=== PATIENT | male | born 1995 | race Caucasian/White ===

== ENCOUNTER 2017-12-04 02:12 | Emergency (ER) | payer MEDICAID ==
[~2017-12-04] VITALS: Ht 175.3 cm; Wt 81.6 kg
[2017-12-04 02:16] VITALS: BP 113/71
--- NOTE | 2017-12-04 02:24 | NUR ---
PT TAKEN TO BED 10
--- NOTE | 2017-12-04 03:18 | NUR ---
PATIENT LEFT WITHOUT BEING SEEN BY DR. Matos. NO FURTHER CARE PROVIDED FOR PATIENT.
--- NOTE | 2017-12-04 03:27 | NUR ---
PT CAME BACK TO ER BED 10 STS " I WAS IN THE BATHROOM, OUTSIDE." ER MD AT BEDSIDE ASHLEY GUZMAN
--- NOTE | 2017-12-04 03:32 | NUR ---
PT BIB SELF C/O BILAT BOTH FOOT PAIN/WHITE RASH S/P FROM RAIN SINCE YESTERDAY. CAP REFILL-IMM, PT DENIES N/V/D; SKIN IS INTACT, PINK/WARM/DRY; AAOX4, PERRL, WITH EVEN AND STEADY GAIT; LUNGS CLEAR BL, BREATHING UNLABORED; HR EVEN AND REGULAR, BL PERIPHERAL PULSES PRESENT; BS ACTIVE X4, NO TENDERNESS TO PALPATION. PT DENIES ANY FEVER, CP, SOB, OR COUGH AT THIS TIME; PT STATES 4/10 PAIN AT THIS TIME; VSS; PATIENT POSITIONED FOR COMFORT; HOB ELEVATED; BEDRAILS UP X2; BED DOWN.
[2017-12-04] MEDS ORDERED: TERBINAFINE 1% 15 GM TUBE TP SCH (03:45)
[2017-12-04] MEDS ORDERED: SULFAMETH/TRIMETH DS 800/160MG 1 TAB PO ONE (03:45)
[2017-12-04] MEDS: IBUPROFEN 600 MG TAB PO ONE ×2 (03:52→03:53)
[2017-12-04 03:54] VITALS: BP 113/71
--- NOTE | 2017-12-04 03:54 | NUR ---
Patient discharged with v/s stable. Written and verbal after care instructions given and explained. Patient alert, oriented and verbalized understanding of instructions. Ambulatory with steady gait. All questions addressed prior to discharge. ID band removed. Patient advised to follow up with PMD. Rx of LAMISIL 250 MG,BACTRIM DS 800 MG, LAMISIL AF 1% TROPICAL SPRAY given. Patient educated on indication of medication including possible reaction and side effects. Opportunity to ask questions provided and answered.
== END 2017-12-04 03:54 | disposition home or self-care (01) ==
LOC: MED 02:12
DX: B35.3 Tinea pedis (principal); L03.116 Cellulitis of left lower limb; L03.115 Cellulitis of right lower limb
CPT/HCPCS: 99283

== ENCOUNTER 2018-02-03 19:12 | Inpatient (IN) | payer MEDICAID ==
[~2018-02-03] VITALS: Ht 167.6 cm; Wt 88.0 kg
--- NOTE | 2018-02-03 19:47 | NUR ---
PT AMBULATED TO ER BED 10
[2018-02-03 19:48] VITALS: BP 122/56
--- NOTE | 2018-02-03 19:57 | NUR ---
22/M CAME IN C/O SUICIDAL IDEATION W/ PLAN "HANGING MY SELF," PT AOX4. HX BIPOLAR. PT TAKES WELLBUTRIN, BUT HAS NOT TAKEN MED SINCE YESTERDAY. Patient in hospital gown. Personal belongings removed from room and stored. Patient desire to harm self others. Potentially harmful items removed from room. Under direct observation. Patient been referred to VARGHESEAIR BASURTO for further evaluation. Will continue to monitor.
--- NOTE | 2018-02-03 20:00 | NUR ---
GERALDINE BASURTO WAS CALLED BY HAND PATCHER JEN
--- NOTE | 2018-02-03 20:14 | NUR ---
SECURITY CALLED FOR PT'S BELONGINGS
[2018-02-03 20:25] LABS: BASOPHILS # (AUTO) 0.1 K/uL (0.00-0.22); BASOPHILS % (AUTO) 1.6 % (0.0-2.0); EOSINOPHILS # (AUTO) 0.2 K/uL (0-0.4); EOSINOPHILS % (AUTO) 2.7 % (0.0-4.0); HEMATOCRIT 34.3 % (36-52); HEMOGLOBIN 11.5 g/dL (12.0-18.0); LYMPHOCYTES # (AUTO) 1.8 K/uL (2.0-11.5); MEAN CORPUSCULAR HEMOGLOBIN 28 pg (27-31); MEAN CORPUSCULAR HGB CONC 34 g/dL (33-37); MEAN CORPUSCULAR VOLUME 85 fL (80-94); MONOCYTES # (AUTO) 0.8 K/uL (0.8-1.0); MONOCYTES % (AUTO) 9.3 % (1.7-9.3); NEUTROPHILS # (AUTO) 5.5 K/uL (1.8-7.7); NEUTROPHILS % (AUTO) 64.4 % (42.2-75.2); PLATELET COUNT (AUTO) 311 K/uL (140-450); RED BLOOD CELL COUNT(AUTO) 4.04 MIL/uL (4.20-6.10); RED CELL DISTRIBUTION WIDTH 12.1 % (11.6-13.7); WHITE BLOOD COUNT (AUTO) 8.4 K/uL (4.8-10.8)
--- NOTE | 2018-02-03 20:27 | NUR ---
Patient being evaluated by physician at bedside.
--- NOTE | 2018-02-03 20:31 | NUR ---
ALL PERSONAL BELONGINGS GIVEN TO SECURITY
[2018-02-03 20:36] LABS: APPEARANCE,URINE CLEAR (CLEAR); BILIRUBIN,URINE NEGATIVE (NEGATIVE); BLOOD, URINE NEGATIVE (NEGATIVE); COLOR,URINE YELLOW (YELLOW); LEUKOCYTE ESTERASE ,URINE NEGATIVE (NEGATIVE); NITRITE, URINE NEGATIVE (NEGATIVE); PH,URINE 6.5 (5.0-9.0); UGLUCOSE NEGATIVE (NEGATIVE)
[2018-02-03 20:42] LABS: ANION GAP 9.7 (8-16); CARBON DIOXIDE 29.1 mmol/L (21-32); CREATININE 1.9 mg/dL (0.7-1.3); POTASSIUM 3.8 mmol/L (3.5-5.1)
[2018-02-03 20:43] LABS: BARBITURATE, URINE NEG. ng/ml (NEG <=200); BENZODIAZEPINE, URINE NEG. ng/mL (NEG <=200); CANNABINOID, URINE POS. ng/mL (NEG <=50); COCAINE, URINE NEG. ng/mL (NEG <=300); OPIATE, URINE NEG. ng/mL (NEG <=2000); PHENCYCLIDINE SCREEN,URINE NEG. ng/mL (NEG <=25)
[2018-02-03 20:50] LABS: ALBUMIN 3.6 g/dL (3.4-5.0); TOTAL BILIRUBIN 0.2 mg/dL (0.0-1.0)
--- NOTE | 2018-02-03 21:00 | NUR ---
Patient appears to be sleeping comfortably in bed. Vital Signs within normal limits. Respirations even and unlabored. 1:1 sitter maintained, safety measures ensured.
--- NOTE | 2018-02-03 21:42 | NUR ---
[facility]ALDINE [employer] OFFICER HAYLEY HERE AT BEDSIDE FOR 8780 EVAL
--- NOTE | 2018-02-03 21:55 | NUR ---
PT PLACED ON 5150 BY GERALDINE BASURTO.
--- NOTE | 2018-02-03 22:10 | NUR ---
Patient appears to be sleeping comfortably in bed. Vital Signs within normal limits. Respirations even and unlabored. 1:1 sitter maintained, safety measures ensured.
--- NOTE | 2018-02-03 22:47 | NUR ---
SPOKE TO ROEL LYLE AT [facility] [phone] , HE STATED HE POSSIBLY MIGHT HAVE A BED OPEN, PAPER WORK FAXED, HE WILL CALL BACK
--- NOTE | 2018-02-03 23:00 | NUR ---
Patient appears to be resting comfortably in bed. Vital Signs within normal limits. Respirations even and unlabored. 1:1 sitter maintained, safety measures ensured.
--- NOTE | 2018-02-03 23:43 | NUR ---
SPOKE TO SARAH LYLE AT [facility] , PACKET FAXED , SHE STATED SHE HAS A BED OPEN.
--- NOTE | 2018-02-04 00:05 | NUR ---
Patient appears to be resting comfortably in bed. Vital Signs within normal limits. Respirations even and unlabored. 1:1 sitter maintained, safety measures ensured.
--- NOTE | 2018-02-04 00:10 | NUR ---
Merari solitario in ED - 02/04/18 at 0133 by STEPHANIE Patient appears to be resting comfortably in bed. Vital Signs within normal limits. Respirations even and unlabored. 1:1 sitting ensured, safety measures ensured.
--- NOTE | 2018-02-04 01:10 | NUR ---
Patient appears to be sleeping comfortably in bed. Vital Signs within normal limits. Respirations even and unlabored. 1:1 sitter maintained, safety measures ensured.
--- NOTE | 2018-02-04 01:25 | NUR ---
CHIARA ISRAEL AND SHERYL LOCKHART BOTH DECLINED , NO VACANCY PER INTAKE SARAH, REFFERED PT TO [facility] , ALSO NO VACANCY PER INTAKE PAUL. NABIL RODRIGUEZ ALSO WAS NOTIFIED FOR PLACEMENT , NO BEDS AT THIS TIME .ER MADE AWARE.
[2018-02-04] MEDS ORDERED: PROCHLORPERAZINE 10 MG/2 ML VIAL IVP PRN (02:05)
[2018-02-04] MEDS ORDERED: MORPHINE SULFATE 2 MG/ML SYR IVP PRN (02:05)
[2018-02-04] MEDS ORDERED: ACETAMINOPHEN 325 MG TAB PO PRN (02:05)
[2018-02-04] MEDS ORDERED: HYDROcodone/APAP 7.5/325 MG 1 TAB PO PRN (02:05)
[2018-02-04] MEDS ORDERED: DOCUSATE SODIUM 100 MG GELCAP PO PRN (02:05)
--- NOTE | 2018-02-04 02:10 | NUR ---
Patient appears to be resting comfortably in bed. Vital Signs within normal limits. Respirations even and unlabored. 1:1 sitter with close monitoring at bedside, safety measures ensured.
[2018-02-04 02:35] LABS: CHOL/HDL RATIO 3.3 (1-4.5); MAGNESIUM 1.9 mg/dL (1.8-2.4); PHOSPHORUS 3.9 mg/dL (2.5-4.9); THYROID STIMULATING HORMONE 0.9 uIU/mL (0.34-3.74)
[2018-02-04 02:40] VITALS: BP 97/51
--- NOTE | 2018-02-04 02:40 | NUR ---
RECEIVED PT FROM ER NURSE WILLIAM-RN. PT ARRIVED VIA GURNEY. AOX4, ON 5150 HOLD WITH ONE ON ONE SUPERVISION FOR SUICIDAL IDEATIONS. ON ROOM AIR. LEFT FA 18G @ 120ML/HR NS. SKIN INTACT. MRSA NARES COLLECTION TAKEN TO LAB. BED IN LOWEST POSITION. WILL CONTINUE TO MONITOR.
[2018-02-04] MEDS ORDERED: LORazepam 1 MG TAB PO PRN (02:45)
[2018-02-04] MEDS ORDERED: LORazepam 1 MG TAB PO SCH (02:45)
--- NOTE | 2018-02-04 02:45 | NUR ---
Patient will be admitted to care of DR ERNST. Admited to TELE. Will go to room 109A. Belongings list completed. Report to JEROD AGUILAR.
[2018-02-04] MEDS: NACL 0.9% 1,000 ML IV SCH ×4 (03:58→21:24)
[2018-02-04 04:00] VITALS: BP 107/60
--- NOTE | 2018-02-04 05:05 | NUR ---
PT SLEEPING AT THIS TIME. BED IN LOWEST POSITION. NO S/S OF RESPIRATORY DISTRESS AT THIS TIME. WILL CONTINUE TO MONITOR.
[2018-02-04 06:22] LABS: BASOPHILS # (AUTO) 0.3 K/uL (0.00-0.22); BASOPHILS % (AUTO) 4.8 % (0.0-2.0); EOSINOPHILS # (AUTO) 0.3 K/uL (0-0.4); EOSINOPHILS % (AUTO) 4.1 % (0.0-4.0); HEMATOCRIT 35.4 % (36-52); LYMPHOCYTES # (AUTO) 1.4 K/uL (2.0-11.5); LYMPHOCYTES % (AUTO) 20.1 % (20.5-51.1); MEAN CORPUSCULAR HEMOGLOBIN 29 pg (27-31); MEAN CORPUSCULAR HGB CONC 34 g/dL (33-37); MEAN CORPUSCULAR VOLUME 86 fL (80-94); MONOCYTES # (AUTO) 0.6 K/uL (0.8-1.0); MONOCYTES % (AUTO) 9.4 % (1.7-9.3); NEUTROPHILS # (AUTO) 4.2 K/uL (1.8-7.7); NEUTROPHILS % (AUTO) 61.6 % (42.2-75.2); PLATELET COUNT (AUTO) 302 K/uL (140-450); RED BLOOD CELL COUNT(AUTO) 4.11 MIL/uL (4.20-6.10); RED CELL DISTRIBUTION WIDTH 12.1 % (11.6-13.7); WHITE BLOOD COUNT (AUTO) 6.8 K/uL (4.8-10.8)
[2018-02-04 06:41] LABS: ANION GAP 10.3 (8-16); CARBON DIOXIDE 28.3 mmol/L (21-32); CREATININE 1.2 mg/dL (0.7-1.3); POTASSIUM 3.6 mmol/L (3.5-5.1)
[2018-02-04 06:46] LABS: PROTHROMBIN TIME 10.5 secs (10.8-13.4)
--- NOTE | 2018-02-04 07:04 | NUR ---
PT SLEEPING AT THIS TIME. NO S/S OF RESPIRATORY DISTRESS OR DISCOMFORT NOTED AT THIS TIME. CALL LIGHT WITHIN REACH. WILL CONTINUE TO MONITOR.
--- NOTE | 2018-02-04 07:13 | NUR ---
ENDORSED PT TO DAY SHIFT NURSE CHAR. PT IN STABLE CONDITION AT THIS TIME.
--- NOTE | 2018-02-04 07:45 | NUR ---
ENDORSEMENT RECEIVED FROM POLYSOMNOGRAPHY TECHNOLOGIST NURSE. PATIENT IS SLEEPING COMFORTABLY, EASILY AROUSABLE BY NAME. RESPIRATION EVEN, UNLABOR ON ROOM AIR. SKIN DRY AND WARM. IV PATENT AND INTACT. DENIED SUICIDAL THOUGHT AT THIS TIME. PLAN OF CARE WAS DISCUSSED WITH PATIENT. BED AT LOW POSITION, BED ALARM ON, 1:1 SITTER ENSURED.
[2018-02-04 08:00] VITALS: BP 101/57
[2018-02-04] MEDS: risperiDONE 1 MG TAB PO SCH (08:38)
[2018-02-04] MEDS: SERTRALINE 50 MG TAB PO SCH (08:38)
--- NOTE | 2018-02-04 10:03 | NUR ---
[facility] INITIAL REVIEW [facility] [phone] PHONE GEE [phone] CALLED [facility], NO PSYCH BEDS AVAILABLE.
--- NOTE | 2018-02-04 11:29 | NUR ---
PATIENT HAS BEEN SCREENED AND CATEGORIZED LOW NUTRITION RISK. PATIENT WILL BE SEEN WITHIN 7 DAYS OF ADMISSION. 02/10/[address]
--- NOTE | 2018-02-04 11:40 | NUR ---
PATIENT IS SLEEPING COMFORTABLY, EASILY AROUSABLE BY NAME. RESPIRATION EVEN, UNLABOR ON ROOM AIR. DENIED OF SUICIDAL THOUGHT. VS WAS TAKEN. 1:1 SITTER ENSURED
--- NOTE | 2018-02-04 11:51 | NUR ---
Called [facility]. Left message for intake regarding bed availability.
[2018-02-04 12:00] VITALS: BP 100/43
--- NOTE | 2018-02-04 14:41 | NUR ---
Called [facility] and spoke with Karoline. No male beds available today.
--- NOTE | 2018-02-04 14:57 | NUR ---
Called [facility] and spoke with Lucy. No beds at this time.
[2018-02-04 16:00] VITALS: BP 102/55
--- NOTE | 2018-02-04 16:10 | NUR ---
PATIENT IS SLEEPING COMFORTABLY, EASILY AROUSABLE BY NAME. RESPIRATIONE EVEN, UNLABOR ON ROOM AIR. DENIED SUICIDAL THOUGHT, HALLUCINATION AT THIS TIME. 1:1 SITTER ENSURE
--- NOTE | 2018-02-04 17:04 | NUR ---
PACKAGING TECH WAS REMOVED. PATIENT IS STABLE AT THIS TIME
--- NOTE | 2018-02-04 18:42 | NUR ---
PATIENT IS SLEEPING COMFORTABLY. RESPIRATION EVEN, UNLABOR ON ROOM AIR. IV PATENT AND INTACT. NO DISTRESS NOTED. 1:1 SITTER ENSURED
--- NOTE | 2018-02-04 19:23 | NUR ---
ENDORSEMENT GIVEN TO THE NEPHROLOGY NURSE NURSE. PATIENT IS STABLE AT THIS TIME
--- NOTE | 2018-02-04 19:24 | NUR ---
RECD. RESTING IN BED SLEEPING BUT EASILY WAKES UP WHEN NAME CALLED. RESPIRATION EVEN AND UNLABORED. IV OF NS AT 120 ML/HR INFUSING, RIGHT FOREARM G18. WHEN ASKED HOW HE IS JUST NODS HEAD AND CONTINUE SLEEPING. 1:1 SITTER NEAR DOOR MONITORING PATIENT CLOSELY. NO APPEARANCE OF PAIN NOTED 0/10.
--- NOTE | 2018-02-04 19:58 | NUR ---
spoke to Solange at [facility] [employer], faxed packet again , possible placement , she will call back when theres vacancy
[2018-02-04 20:00] VITALS: BP 102/60
--- NOTE | 2018-02-04 20:00 | NUR ---
Patient's Plan of Care was discussed and reviewed with TRAFFIC INVESTIGATOR: MORALES LYLES
[2018-02-04] MEDS ORDERED: traZODone 50 MG TAB PO SCH (21:00)
--- NOTE | 2018-02-04 21:21 | NUR ---
DUE PO MEDICATION GIVEN, COOPERATIVE.
--- NOTE | 2018-02-04 22:00 | NUR ---
WARM FOOD AT THE BEDSIDE TABLE. ATE 50% OF DINNER.
--- NOTE | 2018-02-04 23:25 | NUR ---
spoke to Gail at [facility] , no vacancy at this time. Also [facility] and [facility] no beds at this time.
[2018-02-05] VITALS: BP 100/58
[2018-02-05] MEDS: NACL 0.9% 1,000 ML IV SCH ×3 (03:02→12:20)
--- NOTE | 2018-02-05 04:00 | NUR ---
STILL SLEEPING IN BED, WHEN ASKED IF HE NEEDS ANYTHING ALWAYS SAYS NO.
[2018-02-05 06:24] LABS: T4 (THYROXINE) 6.6 ug/dL (4.5-12.0)
--- NOTE | 2018-02-05 07:00 | NUR ---
INQUIRED IF HE VOIDED ALREADY, STATED NO. ENCOURAGED TO DRINK MORE FLUIDS. ATTITUDE PASSIVE. WITH STUBBORNNESS. WILL ENDORSE TO AM NURSE FOR CONTINUITY OF CARE.
--- NOTE | 2018-02-05 07:10 | NUR ---
RECEIVED PATIENT REPORT FROM NIGHTSHIFT NURSE AT BEDSIDE. PATIENT IS ASLEEP AT THIS TIME BUT AROUSABLE. PATIENT IS ALERT AND ORIENTED X4 AT THIS TIME. BREATHING IS WITHIN NORMAL LIMITS. PATIENT DOES NOT COMPLAIN OF ANY PAIN. WILL CONTINUE TO MONITOR PATIENT. PATIENT HAS 1:1 SITTER.
[2018-02-05 08:00] VITALS: BP 105/64
[2018-02-05] MEDS: risperiDONE 1 MG TAB PO SCH (08:46)
[2018-02-05] MEDS: SERTRALINE 50 MG TAB PO SCH (08:46)
--- NOTE | 2018-02-05 08:46 | NUR ---
ABLE TO ADMINISTER MEDICATIONS. PATIENT DENIES ANY SUICIDAL IDEATION OR ANY HALLUCINATIONS AT THIS TIME. PATIENT HAS A FLAT AFFECT WHILE ANSWERING QUESTIONS. WILL CONTINUE TO MONITOR PATIENT.
--- NOTE | 2018-02-05 12:20 | NUR ---
PATIENT RESTING IN BED AT THIS TIME. NO COMPLAINTS OF PAIN. BREATHING IS WITHIN NORMAL LIMITS. PATIENT HAS 1:1 SITTER. WILL CONTINUE TO MONITOR PATIENT.
--- NOTE | 2018-02-05 13:25 | NUR ---
CM NOTE PER FREIGHT ADJUSTER GIO, SEND REVIEWS TO BOTH [facility] AND [facility]. CONCURRENT REVIEW FAXED TO [facility] [phone] PH# [phone] AND TO [facility] [phone] PHONE GEE [phone]
--- NOTE | 2018-02-05 14:04 | NUR ---
PATIENT RESTING IN BED. SWAPPED PATIENTS NS BAG AT THIS TIME. PATIENT SHOWS NO SIGNS OF HALLUCINATIONS OR SUICIDAL IDEATIONS. WILL CONTINUE TO MONITOR PATIENT.
[2018-02-05 16:00] VITALS: BP 110/58
[2018-02-05] MEDS ORDERED: SERT-146 PO (17:46)
[2018-02-05] MEDS ORDERED: RIS1 PO (17:46)
[2018-02-05] MEDS ORDERED: TRAZ-286 PO (17:46)
--- NOTE | 2018-02-05 17:55 | NUR ---
PATIENT RESTING IN BED AT THIS TIME. NO COMPLAINTS OF PAIN. RESPIRATIONS ARE WITHIN NORMAL LIMITS. WILL CONTINUE TO MONITOR PATIENT.
--- NOTE | 2018-02-05 18:24 | NUR ---
[facility] CALLED AND GAVE BED RM 18, SPOKE TO GEORGETTE. ACCEPTING MD IS DR. ROSE. DR. BECERRA NOTIFIED.
--- NOTE | 2018-02-05 18:25 | NUR ---
CALLED REPORT TO JEROD SIERRA AND GAVE REPORT. CALLED MOTHER AND VOICEMAIL IS FULL.
--- NOTE | 2018-02-05 19:30 | NUR ---
PATIENT SIGNED AND LEFT WITH DISCHARGE INSTRUCTIONS. REMOVED PATIENT'S IV LINE WITH CATHETER STILL INTACT. PATIENT IS IN STABLE CONDITION. PATIENT LEFT WITH TRANSPORT IN STABLE CONDITION WITH ALL BELONGINGS.
== END 2018-02-05 19:30 | disposition designated cancer center or children's hospital (05) | DRG 812 ==
LOC: MED 19:12 → MTU 02-04 02:08
PROVIDERS: ADMIT Family Medicine Sports Medicine; ATTEND Family Medicine Sports Medicine
DX: T40.7X1A Poisoning by cannabis (derivatives), accidental (unintentional), initial encounter (principal); N17.0 Acute kidney failure with tubular necrosis; G92 Toxic encephalopathy; F31.4 Bipolar disorder, current episode depressed, severe, without psychotic features; R45.851 Suicidal ideations; F12.90 Cannabis use, unspecified, uncomplicated; D64.9 Anemia, unspecified; F15.90 Other stimulant use, unspecified, uncomplicated; Z91.14 Patient's other noncompliance with medication regimen; Y92.89 Other specified places as the place of occurrence of the external cause
CPT/HCPCS: 36415; 71045; 80048; 80053; 80305; 81003; 82140; 83735; 84100; 84436; 84443; 84479; 85025; 85610; 85730; 87081; 93005; 99285; J7030

== ENCOUNTER 2020-02-12 14:43 | Inpatient (IN) | payer MEDICAID ==
[~2020-02-12] VITALS: Ht 177.8 cm; Wt 90.7 kg
[~2020-02-12 14:43] MED LIST: RIS1 PO; SERT-146 PO; TRAZ-466 PO
[2020-02-12 14:51] VITALS: BP 113/66
--- NOTE | 2020-02-12 15:00 | NUR ---
PT AMBULATED TO ER BED 05
--- NOTE | 2020-02-12 15:05 | NUR ---
PHYSICIAN EVAULATING PATIENT AT THIS TIME
[2020-02-12 15:17] LABS: BASOPHILS # (AUTO) 0.1 K/uL (0.00-0.22); BASOPHILS % (AUTO) 1.3 % (0.0-2.0); EOSINOPHILS # (AUTO) 0.3 K/uL (0-0.4); EOSINOPHILS % (AUTO) 3.7 % (0.0-4.0); HEMATOCRIT 39.4 % (36-52); HEMOGLOBIN 13.2 g/dL (12.0-18.0); LYMPHOCYTES % (AUTO) 23.8 % (20.5-51.1); MEAN CORPUSCULAR HEMOGLOBIN 30 pg (27-31); MEAN CORPUSCULAR HGB CONC 34 g/dL (33-37); MEAN CORPUSCULAR VOLUME 89.3 fL (80-94); MONOCYTES # (AUTO) 0.5 K/uL (0.8-1.0); MONOCYTES % (AUTO) 6.3 % (1.7-9.3); NEUTROPHILS # (AUTO) 5.4 K/uL (1.8-7.7); NEUTROPHILS % (AUTO) 64.9 % (42.2-75.2); PLATELET COUNT (AUTO) 303 K/uL (140-450); RED BLOOD CELL COUNT(AUTO) 4.41 MIL/uL (4.20-6.10); RED CELL DISTRIBUTION WIDTH 13.6 % (11.6-13.7); WHITE BLOOD COUNT (AUTO) 8.3 K/uL (4.8-10.8)
--- NOTE | 2020-02-12 15:29 | NUR ---
PT STATES SI, STATES HE WANTS TO HARM HIMSELF AND OTHERS X 3 DAYS, NO PLAN. NO SUICIDE ATTEMPT. PT AWAKE , ALERT, AFIBRILE , AMBULATORY WITH STEADY GAIT . SCE , CBS , PINK PALPEBRAL CONJUNCTIVAE , ANICTERIC SCLERAE . MEDHX: DENIES
[2020-02-12 15:38] LABS: ALBUMIN 3.5 g/dL (3.4-5.0); ANION GAP 9.6 (8-16); ASPARTATE AMINOTRANSFERASE 18 U/L (15-37); CHLORIDE 105 mmol/L (98-107); GFR ARICAN-AMERICAN 116 mL/min (>90); GLUCOSE 128 mg/dL (74-106); POTASSIUM 3.6 mmol/L (3.5-5.1); SODIUM SERUM 141 mmol/L (136-145); TOTAL BILIRUBIN 0.2 mg/dL (0.0-1.0); UREA NITROGEN, BLOOD 13 mg/dL (7-18)
[2020-02-12] MEDS ORDERED: NACL 0.9% 1,000 ML IV ONE ×2 (15:45→16:55)
[2020-02-12 15:50] LABS: ACETAMINOPHEN < 0.5 ug/ml (10-30); SALICYLATE < 2.8 mg/dL (2.8-20.0)
--- NOTE | 2020-02-12 16:17 | NUR ---
PT AWAKE , ALERT, COMFORTABLE IN BED SIDE RAILS UP AND LOCK.
--- NOTE | 2020-02-12 17:03 | NUR ---
PT AWAKE ,ALERT, AFIBRILE ,SITTING IN BED ,SIDE RAILS UP AND LOCK.
[2020-02-12 17:23] LABS: BARBITURATE, URINE NEGATIVE ng/ml (NEG <=200); BENZODIAZEPINE, URINE NEGATIVE ng/mL (NEG <=200); CANNABINOID, URINE POSITIVE ng/mL (NEG <=50); COCAINE, URINE NEGATIVE ng/mL (NEG <=300); OPIATE, URINE NEGATIVE ng/mL (NEG <=2000); PHENCYCLIDINE SCREEN,URINE NEGATIVE ng/mL (NEG <=25)
--- NOTE | 2020-02-12 17:54 | NUR ---
Dr. Anderson is evaluating the patient via telepsychiatry.
--- NOTE | 2020-02-12 17:55 | NUR ---
PT ON TELEPSYCHE EVALUATION.
--- NOTE | 2020-02-12 19:14 | NUR ---
GIVE REPORT TO JEROD GARCÍA.
[2020-02-12] MEDS ORDERED: ALUMINUM HYD/MAG/SIMETHICONE 30 ML UDC PO ONE (20:10)
--- NOTE | 2020-02-12 20:45 | NUR ---
PT ASLEEP IN BED. NO S/S OF DISTRESS NOTED
[2020-02-12] MEDS ORDERED: ONDANSETRON 4 MG/2 ML VIAL IVP PRN (22:05)
[2020-02-12] MEDS ORDERED: ACETAMINOPHEN 325 MG TAB PO PRN (22:05)
[2020-02-12 22:42] LABS: FREE T4 (FREE THYROXINE) 1.01 ng/dL (0.76-1.46); MAGNESIUM 2.2 mg/dL (1.8-2.4); PHOSPHORUS 2.9 mg/dL (2.5-4.9); THYROID STIMULATING HORMONE 1.29 uIU/mL (0.34-3.74)
[2020-02-12 22:45] VITALS: BP 109/43
[2020-02-12] MEDS: NACL 0.9% 1,000 ML IV SCH (22:45)
--- NOTE | 2020-02-12 22:45 | NUR ---
RECEIVED BEDSIDE REPORT FROM ER NURSE RICKY. PATIENT RECEIVED ON MST FLOOR VIA GURNEY. PT IN STABLE CONDITION. NO SIGNS OF DISTRESS NOTED. ON 5150 HOLD DUE TO SUICIDAL IDEATION. ONE ON ONE SITTER IMPLEMENTED. INITIAL SKIN ASSESSMENT DONE, SKIN INTACT. DR FU CAME AND SAW PATIENT AT BEDSIDE. IV SITE LEFT AC ASSESSED AND INTACT. IV PATENT. WILL CONTINUE TO MONITOR
--- NOTE | 2020-02-12 22:50 | NUR ---
Patient will be admitted to care of DR STEEL. Admited to [facility] . Will go to room 109B. Belongings list completed. Report to JEROD GUZMAN.
[2020-02-13] MEDS ORDERED: DICYCLOMINE 10 MG CAP PO SCH (00:25)
[2020-02-13] MEDS ORDERED: LIDOCAINE VISCOUS 2% 20 ML UDC PO SCH (00:25)
[2020-02-13] MEDS ORDERED: ALUMINUM HYD/MAG/SIMETHICONE 30 ML UDC PO SCH (00:25)
--- NOTE | 2020-02-13 01:36 | NUR ---
PT GOT UP TO USE THE RESTROOM AND ACCIDENTLY PULLED OUT HIS IV. CATHETER TIP INTACT. PT AGREED TO NEW IV INSERTION. 22 GAUGE IV WAS INSERTED ON THE RIGHT FOREARM. PT TOLERATED WELL. NO SIGNS OF DISTRESS NOTED. GI COCKTAIL ALSO ADMINISTERED FOR THE PATIENT. WILL CONTINUE TO MONITOR
--- NOTE | 2020-02-13 03:48 | NUR ---
ROUNDING. PT ASLEEP. EASILY AROUSABLE. NO SIGNS OF DISTRESS NOTED. SAFETY MEASURES IN PLACE. ONE ON ONE SITTER IN PLACE. WILL CONTINUE TO MONITOR
[2020-02-13 04:49] LABS: BASOPHILS # (AUTO) 0.1 K/uL (0.00-0.22); BASOPHILS % (AUTO) 1.6 % (0.0-2.0); EOSINOPHILS # (AUTO) 0.3 K/uL (0-0.4); EOSINOPHILS % (AUTO) 3.6 % (0.0-4.0); HEMATOCRIT 39.5 % (36-52); LYMPHOCYTES # (AUTO) 3.1 K/uL (2.0-11.5); LYMPHOCYTES % (AUTO) 35.2 % (20.5-51.1); MEAN CORPUSCULAR HEMOGLOBIN 30 pg (27-31); MEAN CORPUSCULAR HGB CONC 33 g/dL (33-37); MEAN CORPUSCULAR VOLUME 89.8 fL (80-94); MONOCYTES # (AUTO) 0.6 K/uL (0.8-1.0); MONOCYTES % (AUTO) 7.3 % (1.7-9.3); NEUTROPHILS # (AUTO) 4.6 K/uL (1.8-7.7); NEUTROPHILS % (AUTO) 52.3 % (42.2-75.2); PLATELET COUNT (AUTO) 255 K/uL (140-450); RED BLOOD CELL COUNT(AUTO) 4.39 MIL/uL (4.20-6.10); RED CELL DISTRIBUTION WIDTH 13.7 % (11.6-13.7); WHITE BLOOD COUNT (AUTO) 8.7 K/uL (4.8-10.8)
--- NOTE | 2020-02-13 05:00 | NUR ---
PT IS ASLEEP. NO S/S OF NAY DISCOMFORT NOTED.
[2020-02-13 05:13] LABS: CARBON DIOXIDE 30.1 mmol/L (21-32); CREATININE 0.9 mg/dL (0.6-1.3); POTASSIUM 4.1 mmol/L (3.5-5.1)
[2020-02-13 05:20] LABS: CHOL/HDL RATIO 3.8 (1-4.5); MAGNESIUM 2.2 mg/dL (1.8-2.4); PHOSPHORUS 2.6 mg/dL (2.5-4.9)
--- NOTE | 2020-02-13 07:15 | NUR ---
ENDORSE PT IN STABLE CONDITION TO AM NURSE.
--- NOTE | 2020-02-13 07:16 | NUR ---
RECEIVED REPORT FROM TAFFY PULLER NURSEMEGAN. PT IS IN STABLE CONDITION. RESPIRATIONS EVEN AND UNLABORED, BREATHING TO ROOM AIR. IV INTACT AND PATENT. SAFETY MEASURES IN PLACE. BED IN LOW POSITION, SITTER 1:1. WILL CONTINUE TO MONITOR.
[2020-02-13 08:00] VITALS: BP 103/50
--- NOTE | 2020-02-13 08:03 | NUR ---
Received report from hydroponics worker. Packets were referred to the following facilities: [facility] There are no beds at this time.
[2020-02-13] MEDS: SERTRALINE 50 MG TAB PO SCH (09:24)
[2020-02-13] MEDS: DOCUSATE SODIUM 100 MG GELCAP PO SCH ×2 (09:24→20:54)
[2020-02-13] MEDS: FAMOTIDINE 20 MG TAB PO SCH ×2 (09:25→20:54)
--- NOTE | 2020-02-13 09:28 | NUR ---
GAVE ORDERED DUE MEDICATION. PT TOLERATED WELL. SITTER 1:1. WILL CONTINUE TO MONITOR.
--- NOTE | 2020-02-13 10:22 | NUR ---
PT IN RESTROOM, WAS INFORMED OF UA SAMPLE. SAMPLE NOT GIVEN AT THIS TIME.
[2020-02-13 10:55] LABS: APPEARANCE,URINE CLEAR (CLEAR); BILIRUBIN,URINE NEGATIVE (NEGATIVE); BLOOD, URINE NEGATIVE (NEGATIVE); COLOR,URINE YELLOW (YELLOW); LEUKOCYTE ESTERASE ,URINE NEGATIVE (NEGATIVE); NITRITE, URINE NEGATIVE (NEGATIVE); UGLUCOSE NEGATIVE (NEGATIVE)
--- NOTE | 2020-02-13 12:45 | NUR ---
PT EATING LUNCH AT THIS TIME IN STABLE CONDITION. SITTER 1:1 AT BEDSIDE. WILL CONTINUE TO MONITOR.
[2020-02-13] MEDS: ALUMINUM HYD/MAG/SIMETHICONE 30 ML UDC PO PRN (15:32)
--- NOTE | 2020-02-13 15:34 | NUR ---
GAVE PT PRN MAALOX, PER PATIENT REQUEST. PT INSTABLE CONDITION. SITTER 1:1.
[2020-02-13 16:00] VITALS: BP 123/76
--- NOTE | 2020-02-13 17:30 | NUR ---
PT LYING IN BED IN STABLE CONDITION. SITTER 1:1 AT BEDSIDE. PT IN STABLE CONDITION.
--- NOTE | 2020-02-13 19:29 | NUR ---
GAVE REPORT TO SENIOR WEB APPLICATIONS DEVELOPER NURSE, ANDREZ FOR CONTINUITY OF CARE. PT IN STABLE CONDITION.
--- NOTE | 2020-02-13 19:30 | NUR ---
REPORT RECEIVED FROM JOSE NEWSOME DAY SHIFT NURSE AT BEDSIDE FOR CONTINUITY OF CARE, PT IN STABLE CONDITION.RESPIRATIONS EVEN AND UNLABORED AND PT HAS NO S/S OF PAIN OR DISTRESS NOTED. ALL FALLS PRECAUTIONS IN PLACE. Addendum: 02/13/20 at 1951 by Barbara Pizarro RN ALL UNIVERSAL FALLS PRECAUTIONS IN PLACE.
[2020-02-13] MEDS: traZODone 50 MG TAB PO SCH (20:54)
[2020-02-13] MEDS: PANTOPRAZOLE 40 MG TABEC PO SCH (20:54)
--- NOTE | 2020-02-13 21:00 | NUR ---
PT IN BED 1:1 SITTER AT BEDSIDE. PT SEEMED WITH DRAWN WITH FLAT AFFECT. ORDERED MEDICATION WAS EXPLAINED INCLUDING SIDE EFFECTS, ABD PT DID AGREE TO TAKE HIS ORDERED MEDICATION ( COLACE, PEPCID, PROTONIX AND TRAZODONE) AT THIS TIME. PT DID HOWEVER, PULL OUT HIS IV SITE WITH CANULA INTACT. IT WAS EXPLAINED TO PT THAT HE NEEDS TO HAVE AN IV SITE ON THE FLOOR. PT DECLINES TO HAVE ANOTHER ONE. MD PALMA RESIDENT MADE AWARE. PT HAS NO C/O VOICED AT THIS TIME.
--- NOTE | 2020-02-13 22:00 | NUR ---
1:1 SITTER REMAINS AT BEDSIDE. PT SLEEPING AND DISPLAYING NO ACTIONS TO TRY AND HARM HIMSELF. PT HAD CONSULT WITH PSYCH MD DR NEFF AT BEDSIDE.
[2020-02-13] MEDS: NACL 0.9% 1,000 ML IV SCH (22:03)
[2020-02-14] VITALS: BP 108/62
--- NOTE | 2020-02-14 01:00 | NUR ---
1:1 SITTER AT BEDSIDE, PT ASLEEP IN BED NO S/S OF PAIN OR DISTRESS NOTED.
--- NOTE | 2020-02-14 04:30 | NUR ---
PT ASLEEP NO S/S OF PAIN OR DISTRESS NOTED, 1:1 SITTER AT BEDSIDE.
--- NOTE | 2020-02-14 07:15 | NUR ---
RECEIVED PT. FROM ACADEMIC TUTOR NURSEANDREZ. PT. IS ASLEEP AND IN BED. FULL CODE AND NO KNOWN ALLERGIES. NO IV SITE NOTED. STANDARD ISOLATION AND AMBULATORY. CALL LIGHT WITHIN REACH. REVIEWED PLAN OF CARE. WILL CONTINUE TO MONITOR.
[2020-02-14 08:00] VITALS: BP 106/55
[2020-02-14] MEDS: PANTOPRAZOLE 40 MG TABEC PO SCH ×2 (08:42→21:53)
[2020-02-14] MEDS: FAMOTIDINE 20 MG TAB PO SCH (08:43)
[2020-02-14] MEDS: DOCUSATE SODIUM 100 MG GELCAP PO SCH ×2 (08:43→21:52)
[2020-02-14] MEDS: SERTRALINE 50 MG TAB PO SCH (08:44)
[2020-02-14] MEDS: ALUMINUM HYD/MAG/SIMETHICONE 30 ML UDC PO PRN ×2 (08:48→18:36)
--- NOTE | 2020-02-14 08:52 | NUR ---
MORNING MEDICATIONS GIVEN. NO SIGNS OF DISTRESS NOTED. WILL CONTINUE TO MONITOR.
--- NOTE | 2020-02-14 08:57 | NUR ---
PATIENT HAS BEEN SCREENED AND CATEGORIZED HIGH NUTRITION RISK. PATIENT WILL BE SEEN WITHIN 1-2 DAYS OF ADMISSION. 02/13/20 02/14/[address]
[2020-02-14] MEDS ORDERED: risperiDONE 1 MG TAB PO SCH (09:00)
--- NOTE | 2020-02-14 12:26 | NUR ---
02/14/20 RD INITIAL ASSESSMENT COMPLETED PLEASE REFER TO NUTRITION ASSESSMENT UNDER CARE ACTIVITY FOR ESTIMATED NUTRITIONAL NEEDS. 1. CONTINUE REGULAR DIET TOLERATED 2. RD TO FOLLOW-UP 5-7 DAYS, LOW RISK LA [address]
--- NOTE | 2020-02-14 13:00 | NUR ---
PT. REFUSES TO EAT LUNCH AND WANTS TO CONTINUE SLEEPING. OFFERED ALTERNATIVE FOOD BUT STILL REFUSES. WILL CONTINUE TO MONITOR.
[2020-02-14 16:00] VITALS: BP 114/59
--- NOTE | 2020-02-14 18:25 | NUR ---
PT IS ASLEEP AND IN BED. PT. REFUSES TO EAT DUE TO GASTRIC PAIN OF 8/10. PT. IS GRIMACING AND GUARDING SITE OF PAIN. WILL ADMINISTER PRN MEDICATION AND CONTINUE TO MONITOR.
--- NOTE | 2020-02-14 18:37 | NUR ---
[place] PO GIVEN FOR GASTRIC PAIN LEVEL OF 8/10. NO SIGNS OF DISTRESS. PT. VERBALIZES THAT HE WILL EAT AFTER THE PAIN GOES AWAY. WILL CONTINUE TO MONITOR AND ENDORSE TO PUBLIC AFFAIRS SPECIALIST NURSE.
--- NOTE | 2020-02-14 19:10 | NUR ---
ENDORSED PT. TO SUPERVISOR PRINTING AND STAMPING NURSE, ANDREZ, FOR CONTINUITY OF CARE.
--- NOTE | 2020-02-14 19:10 | NUR ---
RECEIVED REPORT AT BEDSIDE FROM HAM NEWSOME DAYSHIFT NURSE FOR CONTINUITY OF CARE. PT IN BED SLEEPING, RESPIRATIONS ARE EVEN AND UNLABORED NO S/S OF PAIN OR DISTRESS NOTED. PT HAS NO IV SITES AND NO IV FLUIDS RUNNING AT THIS TIME. 1:1 SITTER AT BEDSIDE FOR SUICIDAL PRECAUTIONS.
--- NOTE | 2020-02-14 20:20 | NUR ---
PT IN BED 1:1 PT IN BED SLEEPING BUT AROUSABLE TO NAME. PT HAS FULL DINNER AT BEDSIDE. PT ENCOURAGE TO EAT DINNER AND STAFF EVEN OFFERED TO HEAT UP DINNER FOR HIM. PT REPLIED THAT HE WOULD EAT IT LATER IN A LITTLE WHILE AND THAT HE WANTS TO REST FIRST. PT DENIES ANY PAIN AT THIS TIME. DUE MEDICATIONS OF COLACE, PROTONIX AND TRAZODONE WAS EXPLAINED AT BEDSIDE INCLUDING BENEFITS AND SIDE EFFECTS, PT VERBALIZED UNDERSTANDING AND AGREED TO TAKE MEDICATION. PT WAS COOPERATIVE BUT GUARDED. AFTER TAKING MEDS HE WENT BACK TO SLEEP.
--- NOTE | 2020-02-14 20:45 | NUR ---
MD WEISSRESS HERE FOR PSYCH CONSULT AT BEDSIDE.
[2020-02-14] MEDS: traZODone 50 MG TAB PO SCH (21:53)
[2020-02-14] MEDS: NACL 0.9% 1,000 ML IV SCH (22:03)
[2020-02-15] VITALS: BP 112/65
--- NOTE | 2020-02-15 | NUR ---
PT IN BED ASLEEP, BUT AROUSABLE TO NAME, DINNER STILL UNEATEN AT BEDSIDE, PT DENIES ANY PAIN. SAYS HE WILL EAT THE DINNER LATER. V/S FOLLOWS: T 97.9 P 59 R 14 B/P 112/65 02 99% ON ROOM AIR. 1:1 SITTER AT BEDSIDE.
--- NOTE | 2020-02-15 02:24 | NUR ---
At this time there are still no vacancy at any of the following facilities, [facility] will continue to look for placement.
--- NOTE | 2020-02-15 07:20 | NUR ---
RECEIVED REPORT FROM NOTCHER NURSE, FOR CONTINUITY OF CARE. PT IS RESTING IN BED, AROUSABLE TO VOICE. RESPIRATIONS ARE EVEN AND UNLABORED, BREATHING TO RA. A&OX3. SKIN INTACT. NO IV, DR IS AWARE. SAFETY MEASURES IN PLACE. BED IN LOW POSITION. SITTER 1:1. NO DISTRESS NOTED. WILL CONTINUE TO MONITOR.
[2020-02-15 08:00] VITALS: BP 119/71
[2020-02-15] MEDS: ALUMINUM HYD/MAG/SIMETHICONE 30 ML UDC PO PRN (08:59)
[2020-02-15] MEDS: DOCUSATE SODIUM 100 MG GELCAP PO SCH (09:00)
[2020-02-15] MEDS: SERTRALINE 50 MG TAB PO SCH (09:00)
[2020-02-15] MEDS: PANTOPRAZOLE 40 MG TABEC PO SCH (09:01)
--- NOTE | 2020-02-15 09:04 | NUR ---
PT REQUESTED MAALOX AND COMPLAINED OF STOMACH PAIN, AND IT WAS GIVEN, ORDERED. PT'S SCHEDULED MEDICATIONS WERE ALSO GIVEN, ORDERED. PT TOLERATED PO MEDS WELL. PT IS SITTING UP IN BED, ON PHONE. NO ACUTE DISTRESS NOTED. SAFETY MEASURES IN PLACE. SITTER 1:1. WILL CONTINUE TO MONITOR.
--- NOTE | 2020-02-15 10:05 | NUR ---
DISCHARGE PLANNING: THIS IS A 24 Y/O FEMALE PATIENT FROM HOME, WHO CAME IN DUE TO ABDOMINAL PAIN AND SUICIDAL/HOMICIDAL IDEATIONS. PAST MEDICAL HISTORY OF BIPOLAR DISORDER, RHEUMATOID ARTHRITIS AND MIGRAINES. INITIAL DIAGNOSIS OF SUICIDAL IDEATION. CURRENT LABS INCLUDE WBC 8.7, H/H 13.0/39.5, NA/K 143/4.1, BUN/CREA 8/0.9. UDS POSITIVE FOR CANNABINOIDS. MRSA NARES STILL PENDING. PSYCHE CONSULT IN PLACE. DC PLAN TO IN PATIENT PSYCHE FACILITY.
--- NOTE | 2020-02-15 10:59 | NUR ---
Tax Professional Note: Patient is a 24-year-old male admitted for bipolar disorder, rheumatoid arthritis, and migraines. Patient was admitted from home. SW met with patient at bedside to complete assessment. Patient refused to complete assessment. SW will follow up as needed.
--- NOTE | 2020-02-15 11:00 | NUR ---
PT IS AWAKE AND RESTING IN BED. NO ACUTE DISTRESS NOTED. SAFETY MEASURES, BED IN LOW POSITION. IN PLACE SITTER 1:1. WILL CONTINUE TO MONITOR.
--- NOTE | 2020-02-15 11:53 | NUR ---
PT IS UPSET AND AGITATED. DR. CHUNG WAS NOTIFIED AND ORDERED ATIVAN PO, ONCE. PO MED WAS GIVEN, PT TOLERATED WELL. SAFETY MEASURES IN PLACE. SITTER 1:1 AT BEDSIDE. WILL CONTINUE TO MONITOR.
[2020-02-15] MEDS ORDERED: LORazepam 1 MG TAB PO SCH (12:00)
--- NOTE | 2020-02-15 13:00 | NUR ---
PT IS SITTING UP IN BED. NO ACUTE DISTRESS NOTED. SAFETY MEASURES IN PLACE. SITTER 1:1 AT BEDSIDE. WILL CONTINUE TO MONITOR.
--- NOTE | 2020-02-15 15:13 | NUR ---
A MAGAZINE WAS PROVIDED TO PT, REQUESTED. PT IS LYING IN BED READING. NO DISTRESS NOTED. SAFETY MEASURES IN PLACE. 1:1 SITTER AT BEDSIDE. WILL CONTINUE TO MO Addendum: 02/15/20 at 1517 by Alexandria Ramos RN WILL CONTINUE TO MONITOR.
--- NOTE | 2020-02-15 15:45 | NUR ---
DR OWENS IS AT BEDSIDE TALKING WITH PATIENT. NO SIGNS OF DISTRESS NOTED. SAFETY MEASURES IN PLACE. SITTER 1:1 AT BEDSIDE.
[2020-02-15 17:02] VITALS: BP 125/78
--- NOTE | 2020-02-15 17:05 | NUR ---
INFORMED PT THAT HE WILL BE DC FROM THE HOSPITAL AND ASKED IF ANYONE IS ABLE TO PICK HIM UP. PER PT, HIS FRIEND WILL PICK HIM UP. PT REQUESTED TO TAKE A SHOWER, [facility] IS PROVIDING SUPPLIES FOR SHOWER. NO SIGNS OF DISTRESS NOTED. SAFETY MEASURES IN PLACE.
[2020-02-15] MEDS ORDERED: PANT40EC PO (17:29)
--- NOTE | 2020-02-15 17:49 | NUR ---
PAGED SECURITY TO RETURN PT'S BELONGING. PT STATED THAT HIS FRIEND IS UNABLE TO PICK HIM UP AND NEED A BUS PASS. NOTIFIED WINDOWS TECHNICAL SPECIALIST.
--- NOTE | 2020-02-15 17:54 | NUR ---
PT WAS REQUESTING A BUS PAS. BUS PASS OBTAINED FROM ARTIFICIAL CHERRY MAKER, TYREL, AND GIVEN TO PATIENT.
--- NOTE | 2020-02-15 18:00 | NUR ---
DISCHARGE INSTRUCTION PROVIDED TO PT AT BEDSIDE. PT IS AAOX4 AND ABLE TO COMMUNICATE APPROPRIATELY. PT DENIED ANY SUICIDAL THOUGHT AT THIS TIME. EDUCATED PT ON DISEASE MANAGEMENT, MEDICATION REGIMENS, SIDE EFFECTS, DIET AND SEEK HELP WHEN FEELING SUICIDAL IDEATION. ANSWERED ALL PT'S QUESTIONS. PT VERBALIZED UNDERSTANDING. REMOVED ALL ARM BANDS. DISCHARGE PACKET PROVIDED TO PT AND PT VERBALIZED HE WILL FOLLOW UP WITH PCP AFTER DISCHARGE. PT REFUSED FLU VACCINE AND EDUCATION PROVIDED. PT TOOK ALL HIS BELONGINGS. PT IS GOING TO DISCHARGE HOME. ARTIFICIAL FLOWER MAKER ESCORTED PT TO THE FRONT LOBBY. PT IS IN STABLE CONDITION.
[2020-02-15] MEDS ORDERED: risperiDONE 1 MG TAB PO SCH (21:00)
== END 2020-02-15 18:00 | disposition home or self-care (01) | DRG 243 ==
LOC: MED 14:43 → MTU 22:03
PROVIDERS: ADMIT General Practice; ATTEND General Practice
DX: K21.9 Gastro-esophageal reflux disease without esophagitis (principal); R45.851 Suicidal ideations; E83.51 Hypocalcemia; E66.3 Overweight; F31.9 Bipolar disorder, unspecified; R73.9 Hyperglycemia, unspecified; F12.90 Cannabis use, unspecified, uncomplicated; M06.9 Rheumatoid arthritis, unspecified; G43.909 Migraine, unspecified, not intractable, without status migrainosus; Z68.28 Body mass index [BMI] 28.0-28.9, adult
CPT/HCPCS: 36415; 71045; 74018; 80048; 80053; 80305; 81003; 82150; 83036; 83690; 83735; 83880; 84100; 84439; 84443; 84484; 85025; 85610; 85730; 87081; 93005; 96360; 96361; 99285; G0480; G0482; J7030; Q0092

== ENCOUNTER 2020-02-21 15:35 | Emergency (ER) | payer MEDICAID ==
[~2020-02-21] VITALS: Ht 172.7 cm; Wt 90.7 kg
[~2020-02-21 15:35] MED LIST changes: +PANT40EC PO
[2020-02-21 15:36] VITALS: BP 107/64
[2020-02-21 16:30] LABS: BARBITURATE, URINE NEGATIVE ng/ml (NEG <=200); BENZODIAZEPINE, URINE NEGATIVE ng/mL (NEG <=200); CANNABINOID, URINE POSITIVE ng/mL (NEG <=50); COCAINE, URINE NEGATIVE ng/mL (NEG <=300); OPIATE, URINE NEGATIVE ng/mL (NEG <=2000); PHENCYCLIDINE SCREEN,URINE NEGATIVE ng/mL (NEG <=25)
== END 2020-02-21 16:17 | disposition left against medical advice (07) ==
LOC: MED 15:35
DX: F12.90 Cannabis use, unspecified, uncomplicated (principal); F10.20 Alcohol dependence, uncomplicated; J45.909 Unspecified asthma, uncomplicated; K21.9 Gastro-esophageal reflux disease without esophagitis; Z79.899 Other long term (current) drug therapy
CPT/HCPCS: 80305; 99283

== ENCOUNTER 2020-04-29 17:44 | Inpatient (IN) | payer MEDICAID ==
[~2020-04-29] VITALS: Ht 172.7 cm; Wt 85.7 kg
[2020-04-29 17:48] VITALS: BP 132/78
--- NOTE | 2020-04-29 18:18 | NUR ---
24 YO MALE STATES HE IS HAVING THOUGHTS ABOUT HARMING HIMSELF, DENIES ANY HI. STATES HE SMOKED MARIJUANA EARLIER TODAY BUT DENIES ANY OTHER DRUG/ALCOHOL USE. ALSO C/P PRESSURE ON CHEST. PT DENIES ANY PLAN TO HARM HIMSELF. PMH: SCHIZO-EFFECTIVE DISORDER, BIPOLAR, DEPRESSION NKA
[2020-04-29] MEDS ORDERED: ALUMINUM HYD/MAG/SIMETHICONE 30 ML UDC PO ONE (18:30)
--- NOTE | 2020-04-29 18:50 | NUR ---
Lab at bedside
[2020-04-29 19:03] LABS: BASOPHILS # (AUTO) 0.1 K/uL (0.00-0.22); BASOPHILS % (AUTO) 0.8 % (0.0-2.0); EOSINOPHILS # (AUTO) 0.2 K/uL (0-0.4); EOSINOPHILS % (AUTO) 2.3 % (0.0-4.0); HEMATOCRIT 36.8 % (36-52); HEMOGLOBIN 12.5 g/dL (12.0-18.0); LYMPHOCYTES # (AUTO) 1.8 K/uL (2.0-11.5); LYMPHOCYTES % (AUTO) 21.7 % (20.5-51.1); MEAN CORPUSCULAR HEMOGLOBIN 30 pg (27-31); MEAN CORPUSCULAR HGB CONC 34 g/dL (33-37); MEAN CORPUSCULAR VOLUME 88.6 fL (80-94); MONOCYTES # (AUTO) 0.5 K/uL (0.8-1.0); MONOCYTES % (AUTO) 6.6 % (1.7-9.3); NEUTROPHILS # (AUTO) 5.7 K/uL (1.8-7.7); NEUTROPHILS % (AUTO) 68.6 % (42.2-75.2); PLATELET COUNT (AUTO) 269 K/uL (140-450); RED BLOOD CELL COUNT(AUTO) 4.15 MIL/uL (4.20-6.10); RED CELL DISTRIBUTION WIDTH 13.6 % (11.6-13.7); WHITE BLOOD COUNT (AUTO) 8.3 K/uL (4.8-10.8)
[2020-04-29 19:05] LABS: APPEARANCE,URINE CLEAR (CLEAR); BILIRUBIN,URINE NEGATIVE (NEGATIVE); BLOOD, URINE NEGATIVE (NEGATIVE); COLOR,URINE YELLOW (YELLOW); LEUKOCYTE ESTERASE ,URINE NEGATIVE (NEGATIVE); NITRITE, URINE NEGATIVE (NEGATIVE); UGLUCOSE NEGATIVE (NEGATIVE)
--- NOTE | 2020-04-29 19:15 | NUR ---
RECEIVED REPORT FROM JEROD HERRERA. WILL CONT CARE AT THIS TIME.
--- NOTE | 2020-04-29 19:15 | NUR ---
US AT BEDSIDE.
[2020-04-29 19:19] LABS: ALBUMIN 3.3 g/dL (3.4-5.0); ANION GAP 12.5 (8-16); ASPARTATE AMINOTRANSFERASE 18 U/L (15-37); CARBON DIOXIDE 29.4 mmol/L (21-32); CHLORIDE 101 mmol/L (98-107); CREATININE 1.3 mg/dL (0.6-1.3); GFR ARICAN-AMERICAN 86 mL/min (>90); GLUCOSE 107 mg/dL (74-106); LIPASE 220 U/L (73-393); POTASSIUM 3.9 mmol/L (3.5-5.1); SODIUM SERUM 139 mmol/L (136-145); TOTAL BILIRUBIN 0.2 mg/dL (0.0-1.0); UREA NITROGEN, BLOOD 16 mg/dL (7-18)
[2020-04-29 19:22] LABS: ACETAMINOPHEN < 0.5 ug/ml (10-30); SALICYLATE < 2.8 mg/dL (2.8-20.0)
--- NOTE | 2020-04-29 19:49 | NUR ---
PER ER MD JUÁREZ TELEPSYCH REQUEST INITIATED
--- NOTE | 2020-04-29 20:06 | NUR ---
PT IS SLEEPING COMFORTABLY. NO DISTRESS NOTED. EQUAL CHEST RISE AND FALL.
--- NOTE | 2020-04-29 20:25 | NUR ---
Telepsych speaking with patient at this time
--- NOTE | 2020-04-29 21:33 | NUR ---
PT IS SLEEPING COMFORTABLY IN BED. NO DISTRESS NOTED. EQUAL CHEST RISE AND FALL.
--- NOTE | 2020-04-29 22:04 | NUR ---
Packet received for placement
--- NOTE | 2020-04-29 22:04 | NUR ---
Called the following facilities: [facility] s/w Kaylee, no beds tonight. Call in the am for any discharges [facility] s/w Barbara, patient needs certain covid test before consideration [facility] s/w chey Andino for tonight. They have a lot of patients in their ER. Call in the am for any discharges [facility] s/w Mark no beds, they are full [facility] s/w Ethel, will fax packet for review [facility] no answer, packet faxed for wait list [facility] s/w Jalil no beds for tonight, packet faxed for wait list
[2020-04-29 22:08] LABS: BARBITURATE, URINE NEGATIVE ng/ml (NEG <=200); BENZODIAZEPINE, URINE NEGATIVE ng/mL (NEG <=200); CANNABINOID, URINE POSITIVE ng/mL (NEG <=50); COCAINE, URINE NEGATIVE ng/mL (NEG <=300); OPIATE, URINE NEGATIVE ng/mL (NEG <=2000); PHENCYCLIDINE SCREEN,URINE NEGATIVE ng/mL (NEG <=25)
--- NOTE | 2020-04-29 22:34 | NUR ---
S/W ANDREZ AT [facility], ONLY GERIATRIC BEDS AVAILABLE AT THIS TIME.
[2020-04-29] MEDS ORDERED: NACL 0.9% 1,000 ML IV SCH (22:43)
[2020-04-29] MEDS ORDERED: ACETAMINOPHEN 325 MG TAB PO PRN (22:45)
[2020-04-29] MEDS ORDERED: ONDANSETRON 4 MG/2 ML VIAL IM/IVP PRN (22:45)
[2020-04-29] MEDS ORDERED: DOCUSATE SODIUM 100 MG GELCAP PO PRN (22:45)
[2020-04-29 23:16] LABS: MAGNESIUM 1.9 mg/dL (1.8-2.4); PHOSPHORUS 3.5 mg/dL (2.5-4.9); THYROID STIMULATING HORMONE 2.05 uIU/mL (0.34-3.74)
[2020-04-29] MEDS ORDERED: traZODone 50 MG TAB PO ONE (23:40)
--- NOTE | 2020-04-29 23:40 | NUR ---
RECEIVED REPORT FROM JEROD RASMUSSEN. ADMITTED 24 Y/O MALE FROM [facility]. VIA WHEELCHAIR. TRANSFERRED SAFELY TO BED. RESPIRATION EVEN AND UNLABORED. NO SOB. DENIES PAIN. V/S TAKEN. INITIAL ASSESSMENT DONE. PATIENT IS R/O COVID 19. DROPLET ISOLATION PRECAUTION OBSERVED AT ALL TIMES. PATIENT IS WITH SITTER. PLAN OF CARE WAS DISCUSSED. CALL LIGHT WITHIN REACH. WILL CONTINUE TO MONITOR.
--- NOTE | 2020-04-29 23:40 | NUR ---
Patient will be admitted to care of DR. STEEL. Admited to M/S. Will go to room 130A. Belongings list completed. Report to JEROD CORRAL.
--- NOTE | 2020-04-30 01:00 | NUR ---
RECEIVED A CALL FROM LICO IN [facility]. SHE TOLD ME THAT THEY CAN TAKE THE PATIENT AT 0730. PATIENT WILL BE UNDER DR. LEVINE. I INFORMED RESIDENT ABOUT THE CALL.
--- NOTE | 2020-04-30 02:00 | NUR ---
PATIENT IS ASLEEP. WILL CONTINUE TO MONITOR.
[2020-04-30 04:00] VITALS: BP 112/57
[2020-04-30 04:16] VITALS: BP 112/66
--- NOTE | 2020-04-30 05:50 | NUR ---
DISCHARGE INSTRUCTIONS GIVEN TO PATIENT. VERBALIZED UNDERSTANDING. ANSWERED ALL QUESTIONS. SIGNED DISCHARGE PAPERS. PERSONAL BELONGINGS GIVEN TO PATIENT. DENIES PAIN. NO SOB. PATIENT IS COOPERATIVE. CALL LIGHT WITHIN REACH. WILL CONTINUE TO MONITOR.
--- NOTE | 2020-04-30 06:00 | NUR ---
GAVE REPORT TO LICO FROM [facility]. PATIENT SYSTEMS ARCHITECTURE ANALYST IS AT 0700.
[2020-04-30 06:36] LABS: CHOL/HDL RATIO 2.8 (1-4.5)
--- NOTE | 2020-04-30 07:10 | NUR ---
PICKED UP PATIENT BY CAORL FROM [facility] [address] VIA MEÑO. PATIENT IS IN STABLE CONDITION. D/C AT THIS TIME.
[2020-04-30] MEDS ORDERED: SERTRALINE 50 MG TAB PO SCH (09:00)
[2020-04-30] MEDS ORDERED: PANTOPRAZOLE 40 MG TABEC PO SCH (09:00)
[2020-04-30] MEDS ORDERED: risperiDONE 1 MG TAB PO SCH (09:00)
[2020-04-30] MEDS ORDERED: traZODone 50 MG TAB PO SCH (21:00)
== END 2020-04-30 07:10 | disposition designated cancer center or children's hospital (05) | DRG 243 ==
LOC: MED 17:44 → MTU 22:43 → MMU 23:32
PROVIDERS: ADMIT General Practice; ATTEND General Practice
DX: K21.9 Gastro-esophageal reflux disease without esophagitis (principal); E44.0 Moderate protein-calorie malnutrition; R45.851 Suicidal ideations; R10.9 Unspecified abdominal pain; F31.9 Bipolar disorder, unspecified; J45.909 Unspecified asthma, uncomplicated; Z79.899 Other long term (current) drug therapy; G47.00 Insomnia, unspecified; E66.3 Overweight; F12.90 Cannabis use, unspecified, uncomplicated; Z68.28 Body mass index [BMI] 28.0-28.9, adult
CPT/HCPCS: 36415; 71045; 76705; 80053; 80305; 81003; 83690; 83735; 83880; 84100; 84443; 85025; 87081; 93005; 99285; G0480; G0482; Q0092

== ENCOUNTER 2022-05-11 21:33 | Inpatient (IN) | payer MEDICAID ==
[~2022-05-11] VITALS: Ht 177.8 cm; Wt 80.7 kg
[2022-05-11 21:33] VITALS: BP 138/78
[~2022-05-11 21:33] MED LIST changes: -SERT-146 PO; +SERT-515 PO
--- NOTE | 2022-05-11 21:33 | NUR ---
BIBA TAKEN TO BED #6
--- NOTE | 2022-05-11 21:33 | NUR ---
[place] AT BEDSIDE TO WRITE 2041 HOLD
--- NOTE | 2022-05-11 21:59 | NUR ---
DR. DE LA FUENTE AT BEDSIDE FOR EVALUATION
[2022-05-11 22:17] LABS: BASOPHILS # (AUTO) 0.1 K/uL (0.00-0.22); BASOPHILS % (AUTO) 1.3 % (0.0-2.0); EOSINOPHILS # (AUTO) 0.7 K/uL (0-0.4); EOSINOPHILS % (AUTO) 6.7 % (0.0-4.0); HEMATOCRIT 37.3 % (36-52); HEMOGLOBIN 12.6 g/dL (12.0-18.0); LYMPHOCYTES # (AUTO) 2.2 K/uL (2.0-11.5); LYMPHOCYTES % (AUTO) 20.4 % (20.5-51.1); MEAN CORPUSCULAR HEMOGLOBIN 28 pg (27-31); MEAN CORPUSCULAR HGB CONC 34 g/dL (33-37); MONOCYTES # (AUTO) 1.1 K/uL (0.8-1.0); NEUTROPHILS # (AUTO) 6.8 K/uL (1.8-7.7); NEUTROPHILS % (AUTO) 61.6 % (42.2-75.2); PLATELET COUNT (AUTO) 394 K/uL (140-450); RED BLOOD CELL COUNT(AUTO) 4.44 MIL/uL (4.20-6.10); RED CELL DISTRIBUTION WIDTH 13.1 % (11.6-13.7)
[2022-05-11 22:44] LABS: ALBUMIN 3.5 g/dL (3.4-5.0); ANION GAP 14.1 (8-16); ASPARTATE AMINOTRANSFERASE 312 U/L (15-37); CARBON DIOXIDE 26.8 mmol/L (21-32); CHLORIDE 100 mmol/L (98-107); GFR ARICAN-AMERICAN 114 mL/min (>90); GLUCOSE 139 mg/dL (74-106); SODIUM SERUM 138 mmol/L (136-145); TOTAL BILIRUBIN 0.4 mg/dL (0.0-1.0); UREA NITROGEN, BLOOD 14 mg/dL (7-18)
[2022-05-11 22:47] LABS: ACETAMINOPHEN < 0.5 ug/ml (10-30); SALICYLATE < 2.8 mg/dL (2.8-20.0)
[2022-05-11 22:49] LABS: POTASSIUM 2.9 mmol/L (3.5-5.1)
[2022-05-11] MEDS ORDERED: POTASSIUM CHLORIDE 10 MEQ TABER PO ONE (23:30)
--- NOTE | 2022-05-12 00:46 | NUR ---
PT UNAROUSABLE. PT SLEEPING WITH HOB ELOEVATED. X2 SIDE RAILS UP FOR SAFETY
[2022-05-12] MEDS ORDERED: POTASSIUM CHLORIDE 10 MEQ TABER PO ONE ×2 (01:12→01:13)
[2022-05-12 02:01] LABS: BARBITURATE, URINE NEGATIVE ng/ml (NEG <=200); BENZODIAZEPINE, URINE NEGATIVE ng/mL (NEG <=200); CANNABINOID, URINE POSITIVE ng/mL (NEG <=50); COCAINE, URINE NEGATIVE ng/mL (NEG <=300); OPIATE, URINE NEGATIVE ng/mL (NEG <=2000); PHENCYCLIDINE SCREEN,URINE NEGATIVE ng/mL (NEG <=25)
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
--- NOTE | 2022-05-12 03:41 | NUR ---
PANEL SWAB WALKED TO LAB
--- NOTE | 2022-05-12 05:30 | NUR ---
0530 - PT MEDICALLY CLEARED AND TELEPSYCH APPT CREATED THROUGH [employer]
--- NOTE | 2022-05-12 05:33 | NUR ---
F/S AND CLINICALS FAXED TO [facility]
--- NOTE | 2022-05-12 07:57 | NUR ---
PT RESTING IN BED, EVEN AND UNLABORED BREATHING.
--- NOTE | 2022-05-12 08:20 | NUR ---
PT EATING BREAKFAST
[2022-05-12] MEDS ORDERED: HALOPERIDOL IM 5 MG/ML VIAL IM ONE ×2 (09:05→20:00)
[2022-05-12] MEDS ORDERED: LORazepam 2 MG/ML VIAL IM/IVP ONE (09:05)
[2022-05-12] MEDS ORDERED: HALOPERIDOL IM 5 MG/ML VIAL ONE (09:07)
[2022-05-12] MEDS ORDERED: LORazepam 2 MG/ML VIAL ONE (09:08)
--- NOTE | 2022-05-12 11:38 | NUR ---
PER DR CERON, VS QSHIFT. PATIENT STABLE AND RESTING IN BED. NO SOB, NO DISTRESS AT THIS TIME. ALL NEEDS MET AND SAFETY MEASURES IN PLACE.
--- NOTE | 2022-05-12 13:41 | NUR ---
PT ON TELEPSYCH APPT. WITH DR. PALMA
--- NOTE | 2022-05-12 14:14 | NUR ---
PT SLEEPING IN NO APPARENT DISTRESS. BREATHING EVEN AND UNLABORED.
--- NOTE | 2022-05-12 18:01 | NUR ---
COLLECTED NOVEL/PCR WALKED TO LAB, HANDED OVER TO SUPERVISOR CABINETMAKER
--- NOTE | 2022-05-12 19:15 | NUR ---
Pt report given to BELGICA MENDEZ. Transfer of care at this time.
[2022-05-12] MEDS ORDERED: LORazepam 2 MG/ML VIAL IM ONE (20:00)
--- NOTE | 2022-05-12 20:30 | NUR ---
AMARA SITING IN BED EATING FOOD AT THIS TIME.
--- NOTE | 2022-05-12 23:30 | NUR ---
PATIETN SLEEPING IN BED AT THIS TIME. BED LOW AND LOCKED. ISREAL SIDE RAILS AT BEDSIDE. ALL NEEDS MET
--- NOTE | 2022-05-13 04:40 | NUR ---
PATIENT RESTING IN BED. BED IN LOWEST POSITION AND LOCKED. ISREAL SIDE RAILS UP FOR SAFETY. ALL NEEDS MET AT THIS TIME.
--- NOTE | 2022-05-13 07:15 | NUR ---
REPORT RECEIVED FORM VANESSA LINDO
--- NOTE | 2022-05-13 07:20 | NUR ---
REPORT GIVEN TO BELGICA THAO. TRANSFER OF CARE
--- NOTE | 2022-05-13 07:48 | NUR ---
26YR OLD MALE C/O SI PT ON A 5150 HOLD. PT IS A&OX1 NON COMBATIVE. PT IS FOLLOW DEMANDS AND STATES PAIN LEVEL OF 6/10 FROM CAMPO. PT IS RESTING. SIDE RAILS UP X2 AND BED AT LOWEST POSITION. PENDING PLACEMENT. BIOPLAR NKDA
--- NOTE | 2022-05-13 08:08 | NUR ---
BREAKFAST ORDER PT RESTING IN BED RESP EVEN AND UNLABORED. PENDING TRANSFER AVAIL.
[2022-05-13] MEDS ORDERED: ACETAMINOPHEN EXTRA STRENGTH 500 MG TAB PO ONE (08:45)
[2022-05-13] MEDS: ESCITALOPRAM 20 MG TAB PO SCH (08:45)
[2022-05-13] MEDS ORDERED: CRUSHER, PILL MC ONE (08:47)
--- NOTE | 2022-05-13 08:50 | NUR ---
PT RESTLESS STATES HAVING A CAMPO PAIN LEVEL OF 6/10. PT MEDICATED. WILL CONTINUE TO MONITOR PATIENT
--- NOTE | 2022-05-13 08:58 | NUR ---
BREAKFAST TRAY AT BEDSIDE
[2022-05-13] MEDS ORDERED: HALOPERIDOL IM 5 MG/ML VIAL IM ONE (09:20)
[2022-05-13] MEDS ORDERED: LORazepam 2 MG/ML VIAL IM ONE (09:20)
[2022-05-13] MEDS ORDERED: HALOPERIDOL IM 5 MG/ML VIAL ONE (09:23)
[2022-05-13] MEDS ORDERED: LORazepam 2 MG/ML VIAL ONE (09:23)
--- NOTE | 2022-05-13 09:35 | NUR ---
PT UP TO BATHROOM GAIT STEADY
--- NOTE | 2022-05-13 09:57 | NUR ---
PT RESTLESS. PT WAS MEDICATED. OUTBURST AND YELLING. NON COMBATIVE.
--- NOTE | 2022-05-13 10:04 | NUR ---
PT CONTINUES TO HAVE OUTBURST AND YELLING. MAKING STATEMENTS OF "WHAT DO YOU WANT FROM ME DEVIL" PT IS SLAPPING HIMSELF AND PULLING ON HIS HAIR. PT WAS MEDICATED IM
--- NOTE | 2022-05-13 11:13 | NUR ---
PT AMBULATED TO RESTROOM WITH A STEADY GAIT.
--- NOTE | 2022-05-13 11:15 | NUR ---
PT AMBULATED TO ER BED 6 WITH A STEADY GAIT.
--- NOTE | 2022-05-13 11:16 | NUR ---
PT OFFERED CUP OF WATER, DRANK WATER AND WALKED BACK TO BED
--- NOTE | 2022-05-13 12:00 | NUR ---
PT LUNCH TRAY AT BEDSIDE.
[2022-05-13] MEDS ORDERED: guaiFENesin DM 200/20 MG-10 ML 10 ML UDC PO PRN (12:50)
[2022-05-13] MEDS ORDERED: POTASSIUM CHLORIDE 10 MEQ TABER PO PRN (12:50)
[2022-05-13] MEDS ORDERED: DOCUSATE SODIUM 100 MG GELCAP PO PRN (12:50)
[2022-05-13] MEDS ORDERED: ONDANSETRON 4 MG/2 ML VIAL IM/IVP PRN (12:50)
--- NOTE | 2022-05-13 12:58 | NUR ---
PENDING ADMISSION. NO AVAIL BEDS OF NOW.
--- NOTE | 2022-05-13 13:05 | NUR ---
PT REFUSING LABS AND XRAY. Addendum: 05/13/22 at [address] RUDOLPH AWARE, STATED PT IS "ALLOWED TO REFUSE". NO FURTHER ORDERS AT THIS TIME.
--- NOTE | 2022-05-13 13:08 | NUR ---
Patient will be admitted to care of DR. RUDOLPH. Admited to MED SURG. Belongings list completed. PT ER HOLD IN BED 6.
--- NOTE | 2022-05-13 15:41 | NUR ---
PT ASLEEP RESP EVEN AND UNLABORED
--- NOTE | 2022-05-13 18:03 | NUR ---
DINNER TRAY AT BEDSIDE. PT AWAKE AND EATING
[2022-05-13] MEDS: HYDROcodone/APAP 7.5/325 MG 1 TAB PO PRN (18:45)
--- NOTE | 2022-05-13 18:46 | NUR ---
PT STATES HEADACHE IS 7/10. MEDS GIVEN AND TOLERATED
--- NOTE | 2022-05-14 01:15 | NUR ---
pt states he would like to go to [facility] and admits he still has si and is depressed
--- NOTE | 2022-05-14 01:41 | NUR ---
PT SLEEPING, BLANKET OVER HEAD. X2 SIDE RAILS UP.
--- NOTE | 2022-05-14 04:37 | NUR ---
PT SLEEPING IN A SUPINE POSTION. X 2 SIDE RAILS UP FOR SAFETY
--- NOTE | 2022-05-14 06:41 | NUR ---
PT REFUSES BLOOD DRAW
--- NOTE | 2022-05-14 07:30 | NUR ---
PT RESTING , SLEEPING IN BED. RESPIRATIONS EVEN AND UNLABORED. PT IN VIEW, BED RAILS UP X2 AND BED AT LOWEST POSITION.
--- NOTE | 2022-05-14 08:10 | NUR ---
ATTEMPTED IV, PT DENIED
--- NOTE | 2022-05-14 08:15 | NUR ---
PT PROVIDED WITH BREAKFAST. PT DENIED " STILL SLEEPY' . BREAKFAST LEFT AT BEDSIDE
--- NOTE | 2022-05-14 08:35 | NUR ---
DR RUDOLPH AT BEDSIDE
--- NOTE | 2022-05-14 08:36 | NUR ---
VERBAL ORDER RECEIVED FROM MD RUDOLPH FOR BLOOD DRAW AND IV. PT DENIED BOTH " DOESNT LIKE IT " " IM HEALTHY NOW" Addendum: 05/14/22 at 0938 by PHSEP PT DENIED , DR RUDOLPH AT BEDSIDE AND AWARE
--- NOTE | 2022-05-14 08:38 | NUR ---
PT AMBULATED TO RESTROOM
--- NOTE | 2022-05-14 08:40 | NUR ---
PT AMBULATORY BACK TO ROOM
[2022-05-14] MEDS: ESCITALOPRAM 20 MG TAB PO SCH (09:00)
[2022-05-14] MEDS: PANTOPRAZOLE 40 MG TABEC PO SCH (09:59)
--- NOTE | 2022-05-14 10:11 | NUR ---
Patient will be admitted to care of MD RUDOLPH. Admited to [facility]. Will go to room 109B . Belongings list completed. Report to DUGLAS NEWSOME.
--- NOTE | 2022-05-14 10:13 | NUR ---
Note kassi in ED - 05/14/22 at 1026 by PHSEP Patient will be admitted to care of MD RUDOLPH. Admited to [facility]. Will go to room 109B . Belongings list completed. Report to DUGLAS NEWSOME.
--- NOTE | 2022-05-14 10:14 | NUR ---
The patient's care was reviewed and supervised by Anni Max RN.
[2022-05-14 10:15] VITALS: BP 107/62
--- NOTE | 2022-05-14 10:15 | NUR ---
RECEIVED PT FROM ER NURSE JANET. PT WAS WHEELED FROM ER BY ER NURSE VIA WHEELCHAIR. PT ABLE TO AMBULATE FROM WHEELCHAIR TO UNIT BED. DONE WITH ADMITTING ASSESSMENT. RESPIRATIONS EVEN AND UNLABORED ON ROOM AIR. NO DISTRESS NOTED. BILATERAL HEART SOUND PRESENTS. A&O4, ABLE TO COMMUNICATE NEEDS. ABDOMEN SOFT, NON-DISTENDED WITH ACTIVE BOWEL SOUNDS ON ALL FOUR QUADS. SKIN IS INTACT, WARM AND DRY TO TOUCH. NO EDEMA NOTED. PT REFUSED HAVING AN IV LINE. PER ER NURSE PT REFUSED HAVING HIS BLOOD DRAWN THIS MORNING BUT PT NOW AGREED TO HAVE HIS BLOOD DRAWN. WILL INFORM MD TO RE-ORDER LABS. V/S STABLE ON ADMISSION, DENIES PAIN. MRSA SWAB DONE. PT DENIES INTENTION TO HURT HIMSELF AND OTHERS. PT STATED "I JUST WANT TO FIND A PLACE TO STAY BECAUSE I'M HOMELESS". PT IS CALM, NOT AGITATED. PT ORIENTED TO ROOM, UNIT AND ROUTINE. PT ON 5150 HOLD. 1:[address] SAFET[address] PRECAUTIONS IN PLACE. WILL CONTINUE TO MONITOR.
--- NOTE | 2022-05-14 10:19 | NUR ---
PATIENT HAS BEEN SCREENED AND CATEGORIZED LOW NUTRITION RISK. PATIENT WILL BE SEEN WITHIN 7 DAYS OF ADMISSION. 05/14/22-05/20/[address]
--- NOTE | 2022-05-14 10:56 | NUR ---
[facility]
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
--- NOTE | 2022-05-14 11:45 | NUR ---
DC PLANNING SW CALL [facility] AND ATTEMPTED TO GET UPDATES ON SEARCH FOR PSYCH PLACEMENT FOR PATIENT. NO RESPONSE FROM [facility]. SW WILL CONTINUE TO ATTEMPT TO GET UPDATES LATER ON ANOTHER CALL.
[2022-05-14] MEDS ORDERED: diphenhydrAMINE 12.5 MG/5 ML UDC PO PRN (12:55)
--- NOTE | 2022-05-14 12:55 | NUR ---
PT COMPLAINT OF ITCHINESS ALL OVER HIS BODY. DR ORDERED PO BENADRYL PRN 25 MG BID.
--- NOTE | 2022-05-14 13:03 | NUR ---
PT REQUESTED TO CALL HIS MOTHER CESIA PEPPER TO LET HER NOW THAT HE'S HERE AT [facility]. SPOKE TO PTS MOM, INFORMED HER THAT THE PT IS HERE AT THE [facility]. MOM ASKED IF WE CAN ASSIST HER OR THE PT GET A REHAB BECAUSE SHE SAID THAT SHE'LL NOT BE ABLE TO TAKE HER HOME AT THIS TIME. MOM REQUESTING FOR AN UPDATE. WILL INFORM SW/CM.
[2022-05-14 13:42] LABS: BASOPHILS # (AUTO) 0.1 K/uL (0.00-0.22); BASOPHILS % (AUTO) 1.5 % (0.0-2.0); EOSINOPHILS # (AUTO) 0.4 K/uL (0-0.4); EOSINOPHILS % (AUTO) 4.1 % (0.0-4.0); HEMATOCRIT 40.7 % (36-52); HEMOGLOBIN 13.6 g/dL (12.0-18.0); LYMPHOCYTES # (AUTO) 1.4 K/uL (2.0-11.5); LYMPHOCYTES % (AUTO) 15.8 % (20.5-51.1); MEAN CORPUSCULAR HEMOGLOBIN 29 pg (27-31); MEAN CORPUSCULAR HGB CONC 33 g/dL (33-37); MEAN CORPUSCULAR VOLUME 85.7 fL (80-94); MONOCYTES # (AUTO) 0.7 K/uL (0.8-1.0); MONOCYTES % (AUTO) 8.3 % (1.7-9.3); NEUTROPHILS # (AUTO) 6.1 K/uL (1.8-7.7); NEUTROPHILS % (AUTO) 70.3 % (42.2-75.2); PLATELET COUNT (AUTO) 424 K/uL (140-450); RED BLOOD CELL COUNT(AUTO) 4.75 MIL/uL (4.20-6.10); RED CELL DISTRIBUTION WIDTH 13.2 % (11.6-13.7); WHITE BLOOD COUNT (AUTO) 8.7 K/uL (4.8-10.8)
[2022-05-14 13:57] LABS: ANION GAP 12.5 (8-16); CARBON DIOXIDE 24.9 mmol/L (21-32); POTASSIUM 4.4 mmol/L (3.5-5.1)
--- NOTE | 2022-05-14 14:00 | NUR ---
PT STARTED LAUGHING AND TALKING TO NOBODY IN THE ROOM. WHEN ASKED WHO HE'S TALKING TO. HE JUST CONTINUED TO LAUGH AND MUMBLE WORDS.
[2022-05-14 16:00] VITALS: BP 119/64
--- NOTE | 2022-05-14 18:30 | NUR ---
CALLED TELE-PSYCHE LINE. PLACED PT IN EMERGENT LINE TO HAVE A PSYCHE CONSULT FOR RENEWING 5150 HOLD WHICH WILL BE TONIGHT. AWAITING FOR THE DISPATCHER TO CALL TO GET THE TIME OF THE TELE-PSYCHE CONSULT. PT NOW SITTING IN BED, RESTING. CALM, NOT AGITATED. DENIES PAIN. DENIES HURTING HIMSELF OR OTHERS. NO DISTRESS NOTED. 1:1 SITTER MAINTAINED.
--- NOTE | 2022-05-14 19:11 | NUR ---
GAVE REPORT TO GYMNASTIC COACH NURSE FOR CONTINUITY OF CARE. ALL NEEDS MET THROUGHOUT SHIFT. PT IS STABLE.
--- NOTE | 2022-05-14 19:12 | NUR ---
RECEIVED ENDORSEMENT FROM BELGICA ARDON FOR CONTINUITY OF CARE. PATIENT IS AWAKE AND STABLE. A&OX4. VERBALLY RESPONSIVE AND ABLE TO COMMUNICATE NEEDS. ON ROOM AIR WITH NO APPARENT S/SX OF ACUTE DISTRESS. NO IV SITE. SKIN IS INTACT. 5150-HOLD WILL TODAY. PSYCH CONSULT IS PENDING. PER PSYCH CONSULT, THEY WILL CALL 30 MINUTES AHEAD OF TIME BEFORE THEY SET UP THE APPOINTMENT. AMBULATORY AND CONTINENT OF VOID AND BM. 1:1 SITTER PRESENT. ALL SAFETY MEASURES IN PLACE. BED IN LOW/LOCKED POSITION. WILL CONTINUE TO MONITOR.
[2022-05-14 20:00] VITALS: BP 117/62
--- NOTE | 2022-05-14 21:05 | NUR ---
PATIENT IS STABLE AND RESTING. ENDORSED TO PATIENT THAT PSYCH CONSULT IS PENDING. PER PSYCH CONSULT INSTRUCTIONS, THEY WILL CALL 30 MINUTES AHEAD OF TIME TO SET UP THE TELEHEALTH EQUIPMENT IN PATIENT'S ROOM. PATIENT VERBALIZED UNDERSTANDING. DENIES PAIN. RESPIRATIONS EVEN AND UNLABORED WITH NO APPARENT S/SX OF ACUTE DISTRESS. ALL SAFETY MEASURES IN PLACE. BED IN LOW/LOCKED POSITION. 1:1 SITTER PRESENT. WILL CONTINUE TO MONITOR.
[2022-05-14] MEDS: ZOLPIDEM 5 MG TAB PO PRN (21:07)
--- NOTE | 2022-05-14 22:14 | NUR ---
SPOKE WITH SELENA FROM [facility] REGARDING PATIENT'S PSYCH CONSULT. PER SELENA, TESTED CAMERA/ANGELO FUNCTION OF EQUIPMENT. PSYCH CONSULT WILL INITIATE SESSION ONCE PSYCH MD IS READY.
--- NOTE | 2022-05-14 22:39 | NUR ---
PSYCH MD ARROYO CURRENTLY WITH PATIENT VIA TELEHEALTH. PROVIDED DR. ARROYO UPDATED INFORMATION SUCH CURRENT MEDS, V/S, AND LABS. PER DR. ARROYO, HE WILL CALL BACK TO UPDATED PLAN OF CARE AFTER SPEAKING WITH PATIENT.
--- NOTE | 2022-05-14 22:57 | NUR ---
SPOKE WITH PSYCH MD ARROYO. PER DR. ARROYO, PATIENT MEETS 5150 RENEWAL DUE TO QUICK NEGATION OF SI WITHOUT VALID REASONING. PER DR. ARROYO, ATTEMPTED TO CALL MOM (CESIA) FOR COLLATERAL BUT FAMILY MEMBER DID NOT ANSWER PHONE CALL. PER DR. ARROYO, PATIENT KEPT STATING "I FEEL FINE. I AM HAPPY." DR. ARROYO WILL FINALIZE NOTES SO [place] CAN BE CONTACTED FOR 5150-HOLD RENEWAL.
--- NOTE | 2022-05-14 23:53 | NUR ---
RECEIVED PROGRESS NOTES VIA FAX FROM PSYCH MD ARROYO REGARDING MEETING CRITERIA FOR 5150-HOLD. CALLED [facility]. SPOKE WITH NGHIA AND PROVIDED NECESSARY INFORMATION. THEY WILL BE SENDING CAMERA SUPERVISOR FOR 5150-HOLD EVALUATION SOON THEY CAN.
--- NOTE | 2022-05-15 00:23 | NUR ---
OFFICER BRANDON ARRIVED TO [facility] FOR PT'S EVAL OF 5150 RENEWAL. PROVIDED NECESSARY INFORMATION. OFFICERamez TAYLOR CURRENTLY AT BEDSIDE WITH PT.
--- NOTE | 2022-05-15 00:43 | NUR ---
PER OFFICER BRANDON, PT DOES NOT MEET CRITERIA TO RENEW 5150-HOLD DUE TO PT NOT WANTING TO HARM SELF AND NO ACTIVE PLAN. PER OFFICER BRANDON, PT IS VOICING FUTURE PLANS AND NO LONGER FOCUSED ON SI. PER OFFICER BRANDON, IF PT CHANGES STATEMENT TO VOICING SI OR SHOWS ANY PHYSICAL BEHAVIOR OF HARM, THEN CALL GERALDINE BASURTO.
--- NOTE | 2022-05-15 03:05 | NUR ---
PATIENT IS STABLE AND ASLEEP. CHEST IS RISING AND FALLING EVENLY. RESPIRATIONS EVEN AND UNLABORED WITH NO APPARENT S/SX OF ACUTE DISTRESS. ALL SAFETY MEASURES IN PLACE. BED IN LOW/LOCKED POSITION. 1:1 SITTER PRESENT. WILL CONTINUE TO MONITOR.
[2022-05-15 04:00] VITALS: BP 110/65
--- NOTE | 2022-05-15 05:05 | NUR ---
CHECKED PATIENT. STABLE AND ASLEEP. CHEST IS RISING AND FALLING EVENLY. RESPIRATIONS EVEN AND UNLABORED WITH NO APPARENT S/SX OF ACUTE DISTRESS. ALL NEEDS MET. ALL SAFETY MEASURES IN PLACE. BED IN LOW/LOCKED POSITION. 1:1 SITTER PRESENT. WILL CONTINUE TO MONITOR.
[2022-05-15 07:10] LABS: BASOPHILS # (AUTO) 0.1 K/uL (0.00-0.22); BASOPHILS % (AUTO) 1.4 % (0.0-2.0); EOSINOPHILS # (AUTO) 0.7 K/uL (0-0.4); EOSINOPHILS % (AUTO) 7.7 % (0.0-4.0); HEMATOCRIT 40.8 % (36-52); HEMOGLOBIN 13.7 g/dL (12.0-18.0); LYMPHOCYTES % (AUTO) 20.7 % (20.5-51.1); MEAN CORPUSCULAR HEMOGLOBIN 29 pg (27-31); MEAN CORPUSCULAR HGB CONC 34 g/dL (33-37); MEAN CORPUSCULAR VOLUME 85.7 fL (80-94); MONOCYTES # (AUTO) 0.7 K/uL (0.8-1.0); MONOCYTES % (AUTO) 7.2 % (1.7-9.3); NEUTROPHILS # (AUTO) 6.1 K/uL (1.8-7.7); PLATELET COUNT (AUTO) 427 K/uL (140-450); RED BLOOD CELL COUNT(AUTO) 4.76 MIL/uL (4.20-6.10); RED CELL DISTRIBUTION WIDTH 13.2 % (11.6-13.7); WHITE BLOOD COUNT (AUTO) 9.6 K/uL (4.8-10.8)
--- NOTE | 2022-05-15 07:10 | NUR ---
ENDORSED PT TO BELGICA ARDON FOR CONTINUITY OF CARE. PT IS STABLE.
--- NOTE | 2022-05-15 07:11 | NUR ---
RECEIVED REPORT FROM CONSUMER INSIGHT ANALYST NURSE FOR CONTINUITY OF CARE. PT IS AWAKE AT THIS TIME. BREATHING IS EVEN AND UNLABORED ON ROOM AIR. NO DISTRESS NOTED. A&O4, ABLE TO COMMUNICATE NEEDS. SKIN IS INTACT, WARM AND DRY TO TOUCH. REFUSED TO HAVE IV LINE. PT HAD TELE-PSYCHE CONSULT LAST NIGHT, RECOMMENDED EXTENSION OF 5150 HOLD. ALSO SEEN BY GERALDINE BASURTO AND WAS CLEARED BY OFFICER BRANDON ENDORSED BY CONSUMER INSIGHT ANALYST NURSE. WILL COORDINATE WITH CN AND HS REGARDING THE 5150 HOLD. WITH 1:1 SITTER. SAFETY PRECAUTIONS IN PLACE.
[2022-05-15 07:24] LABS: ANION GAP 11.4 (8-16); CARBON DIOXIDE 27.7 mmol/L (21-32); CREATININE 0.9 mg/dL (0.6-1.3); POTASSIUM 4.1 mmol/L (3.5-5.1)
--- NOTE | 2022-05-15 08:00 | NUR ---
Patient's Plan of Care was discussed and reviewed with BELGICA Tidwell
--- NOTE | 2022-05-15 09:15 | NUR ---
PT YELLING INSIDE THE ROOM. NON-COMBATIVE BUT DOESN'T STOP YELLING EVEN WHEN SPOKE TO. WITH 1:[address]
[2022-05-15] MEDS: HYDROcodone/APAP 7.5/325 MG 1 TAB PO PRN (09:35)
[2022-05-15] MEDS: ESCITALOPRAM 20 MG TAB PO SCH (09:35)
[2022-05-15] MEDS: PANTOPRAZOLE 40 MG TABEC PO SCH (09:35)
--- NOTE | 2022-05-15 09:38 | NUR ---
ADMINISTERED SCHEDULED MORNING MEDS. PT COMPLAINED OF CAMPO 8/10. PRN PAIN MEDS GIVEN. PT TEACHING GIVEN. PT VERBALIZED UNDERSTANDING. PT SHOWED EPISODES OF MUMBLING WORDS WITHOUT TALKING TO ANYBODY. WHEN ASKED WHO DOES HE TALKING TO, PT RESPONDED NO ONE. DENIES HEARING VOICES. DENIES THOUGHTS OF HURTING HIMSELF OR OTHERS. PT WITH 1:[address] ME[address] PL[address]. WILL CONTINUE TO MONITOR.
--- NOTE | 2022-05-15 10:29 | NUR ---
DC PLANNING: THE PATIENT WAS BIBA WITH C/O ETOH INGESTION AND SUICIDAL IDEATION. THE PATIENT STATED PLAN TO JUMP OFF OF A BUILDING TO , PLACED ON A 5150 BY THEM. TOX SCREEN POSITIVE FOR CANNABIS AND ALCOHOL, PATIENT ADMITTED FOR PSYCH MANAGEMENT AND IP PLACEMENT. [facility] HAS FAXED TO MULTIPLE FACILITIES FOR PLACEMENT, PATIENT WILL HAVE HIS 5150 HOLD RENEWED TODAY. HAS NOW BEEN YELLING CONSTANTLY STATING THAT HE'S HEARING VOICES AND WANTS THEM TO STOP. SW SAW HIM AND DOCUMENTED HIS LIVING SITUATION AND FAMILY INVOLVEMENT. CM WILL FOLLOW. Addendum: 05/24/22 at 0926 by Shanelle Garnica CM DC PLANNING: PATIENT CLEARED BY PSYCHIATRIST FROM 5150, DC ORDER RECEIVED. CLIFFORD SPOKE WITH THE PATIENT AT BEDSIDE, HE STATES THAT HIS MOTHER WON'T ALLOW HIM TO RETURN TO HER RESIDENCE, AND THAT SHE'S CURRENTLY AT WORK AND WON'T ANSWER HER PHONE. STATES HE THINKS HIS FRIEND EBENEZER WILL PICK HIM UP AND ALLOW HIM TO STAY WITH HIM, IF NOT HE WILL CALL HIS PROBATION (?) OFFICER WHO HE THINKS WILL ASSIST WITH FINDING A PLACE FOR HIM TO GO. CM ENDORSED THAT WE CAN PROVIDE TRANSPORT IF NEEDED. CM WILL FOLLOW.
--- NOTE | 2022-05-15 13:54 | NUR ---
DID ROUNDS. PT IS SLEEPING. RESPIRATIONS EVEN AND UNLABORED. NO DISTRESS NOTED. 1:1 SITTER OUTSIDE PTS ROOM. SAFETY PRECAUTIONS IN PLACE. WILL CONTINUE TO MONITOR.
[2022-05-15 16:00] VITALS: BP 103/46
--- NOTE | 2022-05-15 17:04 | NUR ---
PT IS AWAKE. SITTING AT BEDSIDE. CALM, NOT AGITATED. NO EPISODE OF BEING COMBATIVE RIGHT NOW. DENIES VISUAL HALLUCINATIONS BUT NOTED TALKING TO SELF AND LAUGHING AFTERWARDS. DENIES HURTING HIMSELF OR OTHERS. 1:1 SITTER OUTSIDE THE DOOR. WILL CONTINUE TO MONITOR.
--- NOTE | 2022-05-15 18:39 | NUR ---
DC PLANNING KAILASH FAXED PATIENT'S 5150 HOLD UPDATE TO [facility] CALL [place] AT WITH COMPLETED CONFIRMATION OF 18:31. KAILASH WILL FOLLOW UP ON PATIENT'S SEARCH FOR PSYCH PLACEMENT NEEDED. Addendum: 05/16/22 at 1455 by Urvashi Ford SS DC PLANNING CORRECTION OF DOCUMENTATION ERROR ABOVE DONE ON 05/15/22 BY KAILASH THOMAS. CLARIFICATION ABOUT 5150 HOLD: WAS FAXED 2 TIMES YESTERDAY TO CORRECT NUMBER AND COMPLETED CONFIRMATIONS WAS SEND AND RECEIVED BY [facility] CALL [facility] BUT KAILASH IN ERROR DOCUMENTED THE CALL CENTER NUMBER INSTEAD OF FAX NUMBER WHICH IS AT ABOUT 18:31 AND 18:34 KAILASH FAXED 2 TIMES PATIENT'S 5150 HOLD UPDATE TO [facility] AT YESTERDAY AND RECEIVED COMPLETED CONFIRMATIONS AT ABOUT 18:31 AT 18:34. KAILASH DID FOLLOW UP ON PATIENT'S SEARCH FOR PSYCH PLACEMENT TODAY BUT NO PLACEMENT IS FOUND YET PER NGHIA FROM THE [facility]. THE INFORMATION AND PATIENT'S CLINICALS HAD BEEN SEND TO [facility], [facility], [facility], [facility], [facility] AND [facility] BUT STILL NO RESPONSE FROM NONE OF THE FACILITIES. KAILASH WILL CONTINUE TO FOLLOW UP WITH SEARCH.
--- NOTE | 2022-05-15 19:40 | NUR ---
ENDORSED PT TO CANDLE WRAPPING MACHINE OPERATOR NURSE FOR CONTINUITY OF CARE. ALL NEEDS MET THROUGHOUT SHIFT. PT IS STABLE.
--- NOTE | 2022-05-15 19:41 | NUR ---
RECD. RESTING IN BED, AWAKE, A/OX4. RESPIRATION EVEN AND UNLABORED. DENIES HEARING VOICES AND VERBALIZED HAS NO INTENTION TO HURT SELF OR OTHERS. ADMITTED FEELING DEPRESSED AND TIRED. INDEPENDENT, AMBULATORY TO THE BATHROOM. DENIES PAIN 0/10. ON 1:1 SITTER, WILL CONTINUE TO MONITOR FOR SAFETY. DENIES PAIN 0/10.
--- NOTE | 2022-05-15 20:00 | NUR ---
Patient's Plan of Care was discussed and reviewed with DAY CARE SUPERVISOR: MORALES LYLES
--- NOTE | 2022-05-15 20:00 | NUR ---
SITTING ON BED, REQUEST FOR SODA AND SANDWICH GIVEN.
[2022-05-15] MEDS: traZODone 50 MG TAB PO SCH (20:37)
--- NOTE | 2022-05-15 20:37 | NUR ---
SCHEDULED MEDICATION FOR THE NIGHT ADMINISTERED. COOPERATIVE.
[2022-05-15] MEDS: ZOLPIDEM 5 MG TAB PO PRN (21:43)
--- NOTE | 2022-05-15 21:43 | NUR ---
COMPLAINT OF UNABLE TO SLEEP, MEDICATED WITH AMBIEN PER MD ORDER.
--- NOTE | 2022-05-15 22:45 | NUR ---
SLEEPING COMFORTABLY. RESPIRATION EVEN AND UNLABORED.
--- NOTE | 2022-05-15 23:00 | NUR ---
WOKE UP AND AMBULATED TO THE BR. BACK TO BED AFTER VOIDING AND GOES BACK TO SLEEP AGAIN.
[2022-05-16] VITALS: BP 121/64
--- NOTE | 2022-05-16 01:30 | NUR ---
SLEEPING COMFORTABLY IN BED, NO APPEARANCE OF DISTRESS NOTED,
--- NOTE | 2022-05-16 02:30 | NUR ---
SOUNDLY ASLEEP, SNORING. RESPIRATION EVEN AND UNLABORED.
--- NOTE | 2022-05-16 04:30 | NUR ---
STILL SLEEPING IN BED, NO UNUSUAL BEHAVIOR NOTED DURING THE NIGHT.
[2022-05-16 04:45] VITALS: BP 98/48
--- NOTE | 2022-05-16 05:45 | NUR ---
AWAKE, WENT TO THE BR TO VOID. BLOOD DRAWN FOR AM LABS BY TECHNICAL SALES ENGINEER.
--- NOTE | 2022-05-16 07:00 | NUR ---
SAFETY MAINTAINED DURING THE SHIFT. CONDITION REMAIN STABLE.
[2022-05-16 07:05] LABS: BASOPHILS # (AUTO) 0.1 K/uL (0.00-0.22); BASOPHILS % (AUTO) 1.6 % (0.0-2.0); EOSINOPHILS # (AUTO) 0.6 K/uL (0-0.4); EOSINOPHILS % (AUTO) 6.8 % (0.0-4.0); HEMATOCRIT 39.5 % (36-52); HEMOGLOBIN 13.4 g/dL (12.0-18.0); MEAN CORPUSCULAR HEMOGLOBIN 29 pg (27-31); MEAN CORPUSCULAR HGB CONC 34 g/dL (33-37); MONOCYTES # (AUTO) 0.7 K/uL (0.8-1.0); MONOCYTES % (AUTO) 7.8 % (1.7-9.3); NEUTROPHILS # (AUTO) 5.2 K/uL (1.8-7.7); NEUTROPHILS % (AUTO) 60.8 % (42.2-75.2); PLATELET COUNT (AUTO) 407 K/uL (140-450); RED BLOOD CELL COUNT(AUTO) 4.65 MIL/uL (4.20-6.10); RED CELL DISTRIBUTION WIDTH 13.1 % (11.6-13.7); WHITE BLOOD COUNT (AUTO) 8.6 K/uL (4.8-10.8)
--- NOTE | 2022-05-16 07:15 | NUR ---
NEW SITTER MONITORING PATIENT NEAR DOOR. ENDORSED TO AM SHIFT NURSE FOR CONTINUITY OF CARE.
--- NOTE | 2022-05-16 07:15 | NUR ---
RECEIVED REPORT FROM NIGHTSHIFT NURSE FOR CONTINUITY OF CARE. PLAN OF CARE DISCUSSED, PT CURRENTLY SLEEPING WITH SITTER AT THE BEDSIDE. A/OX 4, AMBULATORY AND CONTINENT OF THE BOWEL AND BLADDER. PT BREATHING EVEN, REGULAR, AND UNLABORED ON RA. PT DENIES ANY PAIN AT THIS TIME WITH SKIN INTACT. PT IN STABLE CONDITION.
[2022-05-16 07:17] LABS: ANION GAP 11.8 (8-16); CARBON DIOXIDE 27.3 mmol/L (21-32); CREATININE 0.9 mg/dL (0.6-1.3); POTASSIUM 4.1 mmol/L (3.5-5.1)
[2022-05-16 08:00] VITALS: BP 107/65
[2022-05-16] MEDS ORDERED: SERTRALINE 50 MG TAB PO SCH (09:00)
[2022-05-16] MEDS ORDERED: PANTOPRAZOLE 40 MG TABEC PO SCH (09:00)
[2022-05-16] MEDS: risperiDONE 1 MG TAB PO SCH (09:28)
[2022-05-16] MEDS: ESCITALOPRAM 20 MG TAB PO SCH (09:28)
[2022-05-16] MEDS: PANTOPRAZOLE 40 MG TABEC PO SCH (09:29)
[2022-05-16] MEDS: HYDROcodone/APAP 7.5/325 MG 1 TAB PO PRN (09:30)
--- NOTE | 2022-05-16 09:30 | NUR ---
PT COMPLAINED OF HEADACHE PAIN 8-08/04. PRN NORCO GIVEN.
--- NOTE | 2022-05-16 11:30 | NUR ---
PT VISUALLY ASSESSED, AND CURRENTLY SLEEPING. PT IN STABLE CONDITION.
--- NOTE | 2022-05-16 13:10 | NUR ---
PT VISUALLY ASSESSED, AND CURRENTLY AWAKE AND AMBULATING IN ROOM. PT IN STABLE CONDITION.
--- NOTE | 2022-05-16 13:39 | NUR ---
Patient still needing placement per notes the 5150 was fax to [phone] which is not the correct fax number. The correct fax number is [phone]. Please fax updated [phone] for further placement
--- NOTE | 2022-05-16 15:45 | NUR ---
PT VISUALLY ASSESSED, AND CURRENTLY SLEEPING. PT IN STABLE CONDITION.
[2022-05-16 16:00] VITALS: BP 109/58
--- NOTE | 2022-05-16 17:00 | NUR ---
PT VISUALLY ASSESSED, AND CURRENTLY AWAKE. PT IN STABLE CONDITION. DENIES PAIN AT THIS TIME.
--- NOTE | 2022-05-16 19:17 | NUR ---
ENDORSED PT TO NIGHTSHIFT NURSE SHIVA FOR CONTINUITY OF CARE. PLAN OF CARE DISCUSSED. PT INSTABLE CONDITION.
[2022-05-16] MEDS: traZODone 50 MG TAB PO SCH (21:00)
[2022-05-17 07:19] LABS: ANION GAP 9.8 (8-16); CARBON DIOXIDE 27.2 mmol/L (21-32); CREATININE 0.9 mg/dL (0.6-1.3)
[2022-05-17 07:29] LABS: BASOPHILS # (AUTO) 0.1 K/uL (0.00-0.22); BASOPHILS % (AUTO) 1.3 % (0.0-2.0); EOSINOPHILS # (AUTO) 0.6 K/uL (0-0.4); EOSINOPHILS % (AUTO) 6.6 % (0.0-4.0); HEMATOCRIT 38.5 % (36-52); HEMOGLOBIN 12.9 g/dL (12.0-18.0); LYMPHOCYTES % (AUTO) 23.4 % (20.5-51.1); MEAN CORPUSCULAR HEMOGLOBIN 29 pg (27-31); MEAN CORPUSCULAR HGB CONC 34 g/dL (33-37); MEAN CORPUSCULAR VOLUME 86.5 fL (80-94); MONOCYTES # (AUTO) 0.7 K/uL (0.8-1.0); MONOCYTES % (AUTO) 8.8 % (1.7-9.3); NEUTROPHILS % (AUTO) 59.9 % (42.2-75.2); PLATELET COUNT (AUTO) 382 K/uL (140-450); RED BLOOD CELL COUNT(AUTO) 4.45 MIL/uL (4.20-6.10); RED CELL DISTRIBUTION WIDTH 13.3 % (11.6-13.7); WHITE BLOOD COUNT (AUTO) 8.4 K/uL (4.8-10.8)
--- NOTE | 2022-05-17 07:30 | NUR ---
OPENING NOTE: REPORT RC'VD FROM OUT GOING NOC RN, ALL CARES ASSUMED.
[2022-05-17] MEDS: PANTOPRAZOLE 40 MG TABEC PO SCH (08:19)
[2022-05-17] MEDS: risperiDONE 1 MG TAB PO SCH (08:19)
[2022-05-17] MEDS: ESCITALOPRAM 20 MG TAB PO SCH (08:19)
--- NOTE | 2022-05-17 08:30 | NUR ---
RN ROUNDS PATIENT REMAINS STABLE, AMBULATES IN ROOM, DENIES PAIN AND OR DISCOMFORT. SITTER REMAINS AT DOOR FOR 1:1 SUPERVISION. ALL SAFETY PRECAUTIONS IN PLACE.
--- NOTE | 2022-05-17 09:30 | NUR ---
RN ROUNDS PATIENT REMAINS STABLE, AMBULATES IN ROOM, DENIES PAIN AND OR DISCOMFORT. SITTER REMAINS AT DOOR FOR 1:1 SUPERVISION. ALL SAFETY PRECAUTIONS IN PLACE.
--- NOTE | 2022-05-17 10:30 | NUR ---
RN ROUNDS PATIENT REMAINS STABLE, DENIES PAIN AND OR DISCOMFORT. SITTER REMAINS AT DOOR FOR 1:1 SUPERVISION. ALL SAFETY PRECAUTIONS IN PLACE.
--- NOTE | 2022-05-17 11:10 | NUR ---
DISCHARGE PLANNING SW [facility] AT TO GET UPDATES ON SEARCH FOR PSYCH PLACEMENT. SW SPOKE TO JUJU WHO REPORTED THAT NO PLACEMENT HAS BEEN FOUND FOR PATIENT. FOR LACK OF OPEN BEDS IN FACILITIES. [place], [place], [facility], [facility] ALL HAVE NO BEDS. SW THANKED HIM FOR THE UPDATES AND REQUEST FOR NOTES TO BE DOCUMENTED ON CHART. SW/CM WILL CONTINUE TO FOLLOW UP NEEDED.
--- NOTE | 2022-05-17 11:30 | NUR ---
RN ROUNDS PATIENT REMAINS STABLE, DENIES PAIN AND OR DISCOMFORT. SITTER REMAINS AT DOOR FOR 1:1 SUPERVISION. ALL SAFETY PRECAUTIONS IN PLACE. ALL NEEDS MET AT THIS TIME.
--- NOTE | 2022-05-17 14:00 | NUR ---
RN ROUNDS PATIENT CALM AND COOPERATIVE, DENIES SUICIDAL IDEATION. PATIENT REMAINS STABLE, DENIES PAIN AND OR DISCOMFORT. SITTER REMAINS AT DOOR FOR 1:1 SUPERVISION. ALL SAFETY PRECAUTIONS IN PLACE. ALL NEEDS MET AT THIS TIME.
--- NOTE | 2022-05-17 14:03 | NUR ---
Call center still trying to find placement , at this time there are still no vacancy at any of the designated facilities, Will notify floor nurse when placement is found .
--- NOTE | 2022-05-17 15:36 | NUR ---
RN ROUNDS PATIENT RESTING COMFORTABLY IN NO ACUTE DISTRESS AND OR DISCOMFORT. SAFETY PRECAUTIONS IN PLACE, BED LOW AND LOCKED FOR SAFETY. ALL NEEDS MET AT THIS TIME.
--- NOTE | 2022-05-17 17:12 | NUR ---
CALLED SOC TELEPSYCH FOR FOLLOW UP PER PROVIDER ORDER IS NOT IN, GAVE PT INFORMATION FOR CONSULT, AWAITING FOR CALL BACK.
--- NOTE | 2022-05-17 18:56 | NUR ---
CLOSING NOTE: REPORT GIVEN TO INCOMING NOC RN, ALL CARES ENDORSED.
--- NOTE | 2022-05-17 18:57 | NUR ---
RECEIVED REPORT FROM NGHIA NEWSOME. PATIENT WAS STABLE UPON ARRIVAL. PATIENT REQUESTED SANDWICH AND COFFEE. REQUEST WAS HONORED. PATIENT ALERT AND ORIENTED X 4. STATED HE NO LONGER WANTS TO HURT HIMSELF OR ANYONE. NO NOTED S/SX OF PAIN/DISCOMFORT. PATIENT WAS BREATHING WITHOUT ANY RESPIRATORY DISTRESS. PATIENT WAS OBSERVED ON HIS BED EATING. SITTER WILL CONTINUE TO MONITOR FOR SAFETY. [email or web address]
--- NOTE | 2022-05-17 20:00 | NUR ---
Patient's Plan of Care was discussed and reviewed with ABRIL LINDO
[2022-05-17] MEDS: traZODone 50 MG TAB PO SCH (21:20)
--- NOTE | 2022-05-17 21:40 | NUR ---
PATIENT REMAINS ON LINE OF SIGHT WITH SITTER. PATIENT WAS ABLE TO TAKE MEDICATION WITHOUT INCIDENT. WAS GIVEN ANOTHER SANDWICH PER REQUEST. PATIENT WAS ENCOURAGED TO GET A GOOD NIGHTS REST. PATIENT AGREED AND WENT TO BED. SITTER AT BEDSIDE FOR SAFETY OF SUICIDAL IDEAS. [email or web address]
--- NOTE | 2022-05-18 01:15 | NUR ---
PATIENT IN BED ASLEEP. NO NTOED S/SX OF PAIN/DISCOMFORT. NO NOTED RESPIRATORY DISTRESS. PATIENT REMAINS ON 5150 AND SITTER REMAINS A BEDSIDE FOR SAFETY. [email or web address]
--- NOTE | 2022-05-18 03:12 | NUR ---
PATIENT SPOKE WITH DR DONG FOR PSYCH-EVALUATION. MD WILL PUT IN ORDERS FOR PATIENT TO BE TRANSFERRED TO AN INPATIENT PSYCHIATRIC FACILITY. PATIENT VERBALIZED HE WOULD PREFER [facility]. AFTER THE PSYCH EVALUATION PATIENT USED THE RESTROOM AND WENT BACK TO SLEEP. [email or web address]
[2022-05-18] MEDS: ACETAMINOPHEN 325 MG TAB PO PRN ×2 (04:46→19:58)
--- NOTE | 2022-05-18 05:00 | NUR ---
PATIENT STATED DHE HAS A HEADACHE. NURSING GAVE PRN TYLENOL. PATIENT BEGAN YELLING OUT "BITCH". AND WHEN NURSING INQUIRED IF EVERYTHING WAS OKAY HE STATED HE WAS NOT TALKING TO NURSING BUT THE DEMONS IN HIS HEAD. NURSING REMINDED HIM HE WAS [facility] ANY DEMONS. NURSING COPING SKILL TO YOU RELAXATION TECHNIQUES TO SETTLE HIS ANXIETY AND AUDIO HALLUCINATIONS. PATIENT AGREED AND LAID DOWN IN THE BED IN ANTICIPATION FOR BREAKFAST. [email or web address]
[2022-05-18 06:58] LABS: BASOPHILS # (AUTO) 0.1 K/uL (0.00-0.22); BASOPHILS % (AUTO) 1.1 % (0.0-2.0); EOSINOPHILS # (AUTO) 0.5 K/uL (0-0.4); EOSINOPHILS % (AUTO) 6.3 % (0.0-4.0); HEMATOCRIT 36.9 % (36-52); HEMOGLOBIN 12.3 g/dL (12.0-18.0); LYMPHOCYTES # (AUTO) 2.3 K/uL (2.0-11.5); LYMPHOCYTES % (AUTO) 27.3 % (20.5-51.1); MEAN CORPUSCULAR HEMOGLOBIN 29 pg (27-31); MEAN CORPUSCULAR HGB CONC 33 g/dL (33-37); MONOCYTES # (AUTO) 0.8 K/uL (0.8-1.0); MONOCYTES % (AUTO) 9.1 % (1.7-9.3); NEUTROPHILS # (AUTO) 4.8 K/uL (1.8-7.7); NEUTROPHILS % (AUTO) 56.2 % (42.2-75.2); PLATELET COUNT (AUTO) 378 K/uL (140-450); RED BLOOD CELL COUNT(AUTO) 4.29 MIL/uL (4.20-6.10); RED CELL DISTRIBUTION WIDTH 13.3 % (11.6-13.7); WHITE BLOOD COUNT (AUTO) 8.5 K/uL (4.8-10.8)
--- NOTE | 2022-05-18 07:17 | NUR ---
MARY TRAN HEALTH SCIENCE INSTRUCTOR PATIENT WAS IN BED RESTING QUIETLY. PATIENT WAS STABLE AT ENDORSEMENT. [email or web address]
--- NOTE | 2022-05-18 07:18 | NUR ---
RECEIVED REPORT FROM CANOPY STRINGER NURSE FOR CONTINUITY OF CARE. PT IN BED RESTING AT THIS TIME. RESPIRATIONS ARE EVEN AND UNLABORED ON ROOM AIR. NO SIGNS OF DISTRESS NOTED. PT IS ON 5150 HOLD AT THIS TIME, WITH SITTER AT DOOR WAY. ALL SAFETY MEASURES IN PLACE. WILL CONTINUE TO MONITOR.
[2022-05-18 07:19] LABS: ANION GAP 8.1 (8-16); CARBON DIOXIDE 27.9 mmol/L (21-32); CREATININE 0.9 mg/dL (0.6-1.3)
[2022-05-18 08:00] VITALS: BP 107/70
[2022-05-18] MEDS: risperiDONE 1 MG TAB PO SCH (09:29)
[2022-05-18] MEDS: PANTOPRAZOLE 40 MG TABEC PO SCH (09:29)
[2022-05-18] MEDS: ESCITALOPRAM 20 MG TAB PO SCH (09:30)
--- NOTE | 2022-05-18 09:33 | NUR ---
ADMINISTERED SCHEDULED MEDICATIONS. EDUCATED PT ON MEDS ADMINISTERED. PT VERBALIZED UNDERSTANDING. WILL CONTINUE TO MONITOR.
--- NOTE | 2022-05-18 11:16 | NUR ---
PT ASKING WHEN IS HE GOING TO BE ABLE TO LEAVE. INFORMED PT THAT CASE MANAGEMENT IS LOOKING FOR PLACEMENT. PT SEEMS UPSET AT THIS NEWS. ASKING IF THERE IS A WAY TO "HURRY THE PROCESS UP". WILL INFORM DIRECTOR MARKETING ANALYTICS. WILL KEEP PT UPDATED.
--- NOTE | 2022-05-18 13:59 | NUR ---
DID ROUNDS ON PT. PT SITTING UP IN BED AT THIS TIME. RESPIRATIONS ARE EVEN AND UNLABORED ON ROOM AIR. NO SIGNS OF DISTRESS NOTED. NO COMPLAINTS OF PAIN OR DISCOMFORT NOTED. PT CONTINUES TO HAVE SITTER.
--- NOTE | 2022-05-18 15:45 | NUR ---
PT STATED NOT FEELING SAD ANYMORE STATED WANTS TO TALK TO ORDERED TELEPSYCH CONSULT. WILL CONTINUE TO MONITOR.
[2022-05-18 16:00] VITALS: BP 117/64
--- NOTE | 2022-05-18 16:19 | NUR ---
CALLED TELEPSYCH FOR CONSULT. SPOKE WITH YUDITH. WAS INFORMED PT WILL BE PUT ON THE QUE AND THEY WILL CALL US WHEN DR IS AVAILABLE TO SEE PT.
--- NOTE | 2022-05-18 17:12 | NUR ---
PT CALLED NURSE. ASKING AGAIN WHEN HE WILL BE ABLE TO GO HOME. RE-EDUCATED PT REGARDING 5150 HOLD AND POLICY. PT UPSET HOWEVER DID VERBALIZE UNDERSTANDING. PT STATES HE WOULD LIKE TO SPEAK WITH HIS MOTHER. PT CALLED MOTHER, MOTHER DID NOT ANSWER. WILL CONTINUE TO MONITOR.
--- NOTE | 2022-05-18 18:00 | NUR ---
PT ASKING ONCE AGAIN WHEN HE WILL TRANSFERRED TO PSYCH FACILITY OR WHEN HE WILL BE ABLE TO GO HOME. UPDATED PT. PT VERBALIZED UNDERSTANDING. WILL CONTINUE TO MONITOR.
--- NOTE | 2022-05-18 19:14 | NUR ---
ENDORSED PT TO LIMOUSINE AND HEARSE UPHOLSTERER NURSE FOR CONTINUITY OF CARE. PT IS STABLE.
--- NOTE | 2022-05-18 19:15 | NUR ---
RECEIVED ENDORSEMENT FROM DAY SHIFT NURSE, PT IS STABLE.
--- NOTE | 2022-05-18 19:58 | NUR ---
PT COMPLAINTS OF HEADACHE, TYLENOL ADMINISTERED ORDERED.
[2022-05-18 20:00] VITALS: BP 106/58
[2022-05-18] MEDS: traZODone 50 MG TAB PO SCH (20:27)
[2022-05-18] MEDS: ZOLPIDEM 5 MG TAB PO PRN (20:53)
--- NOTE | 2022-05-18 20:53 | NUR ---
PT COMPLAINTS OF NOT ABLE TO FALL ASLEEP. SLEEPING PILL ADMINISTERED ORDERED.
--- NOTE | 2022-05-18 20:58 | NUR ---
PT IS AWAKE ON BED, NO COMPLAINT OF HEADACHE, NO FACIAL GRIMACING.
--- NOTE | 2022-05-18 21:00 | NUR ---
PT IS AWAKE, RESTLESS AND MAKE MOVEMENTS ON THE BED. PT NOT ABLE TO SLEEP.
--- NOTE | 2022-05-18 22:00 | NUR ---
PT IS AWAKE, ON BED, RESTLESS, NO COMPLAINT OF PAIN.
--- NOTE | 2022-05-18 23:00 | NUR ---
PT FELL ASLEEP.
--- NOTE | 2022-05-19 01:40 | NUR ---
PT AWAKE AND USE RESTROOM. PT ASKS WHEN HE WILL HAVE PSYCH CONSULT?
--- NOTE | 2022-05-19 02:00 | NUR ---
PT AWAKE AND GET UP FROM BED. PT STATED: "THE PSYCH APPOINTMENT SUPPOSE TO BE YESTERDAY 05/18/22, I DON'T WANNA LOOSE MY CHANCE".
--- NOTE | 2022-05-19 02:15 | NUR ---
PT SITTING ON THE SIDE OF THE BED QUIETLY.
--- NOTE | 2022-05-19 05:15 | NUR ---
PT ASLEEP, NO FACIAL GRIMACING.
--- NOTE | 2022-05-19 05:56 | NUR ---
PT REFUSED BLOOD DRAW FOR LAB TEST.
--- NOTE | 2022-05-19 07:30 | NUR ---
RECEIVED REPORT FROM SECTION BEAMER THAT PT CURRENTLY ON 5150 LEGAL HOLD FOR DANGER TO SELF, 1 TO 1 SITTER AT BEDSIDE, PT IS ORIENTED AND ALERTX4. PER REPORT, PT REFUSED LAB THIS MORNING, ALL SAFETY MEASURE IN PLACE, CALL LIGHT WITHIN REACH, WILL CONTINUE TO MONITOR.
--- NOTE | 2022-05-19 07:30 | NUR ---
PT IS ON STABLE CONDITION. ENDORSED TO DAY SHIFT NURSE FOR CONTINUITY OF PT CARE.
--- NOTE | 2022-05-19 07:31 | NUR ---
RECEIVED REPORT FORM QUAIL FARMER NURSE FOR CONTINUITY OF CARE. PT IS SLEEPING. BREATHING IS EVEN AND UNLABORED. NO IV SITE, PT REFUSED TO HAVE ONE. PT REFUSED BLOOD DRAWN TODAY, ENDORSED BY QUAIL FARMER NURSE. PER QUAIL FARMER NURSE TELE-PSYCHE CONSULT DIDN'T HAPPEN LAST NIGHT. 5150 HOLD WILL 2299. PT WITH 1:1 SITTER. SAFETY MEASURES IN PLACE. WILL CONTINUE TO MONITOR.
--- NOTE | 2022-05-19 07:32 | NUR ---
PT ASSIGNED TO TORI PEACOCK, WITH MY SUPERVISION.
[2022-05-19 08:00] VITALS: BP 100/49
--- NOTE | 2022-05-19 08:00 | NUR ---
Patient's Plan of Care was discussed and reviewed with TIME CLOCK REPAIRER: Yaw Calabrese
[2022-05-19] MEDS: PANTOPRAZOLE 40 MG TABEC PO SCH (09:02)
[2022-05-19] MEDS: risperiDONE 1 MG TAB PO SCH ×2 (09:04→17:10)
[2022-05-19] MEDS: ESCITALOPRAM 20 MG TAB PO SCH ×2 (09:05→09:14)
--- NOTE | 2022-05-19 09:22 | NUR ---
MEDICATION ADMINISTERED PER MD ORDER, PT HAS ANXIOUS MOOD, CURSING AND TALKING LOUD IN THE ROOM, PT DENIED AUDITORY HALLUCINATION AT THIS TIME, ALL SAFETY MEASURE IN PLACE, CALL LIGHT WITHIN REACH, SITTER AT BEDSIDE, WILL CONTINUE TO MONITOR.
--- NOTE | 2022-05-19 09:32 | NUR ---
(05/19/22) RD INITIAL ASSESSMENT COMPLETED PLEASE REFER TO NUTRITION ASSESSMENT UNDER CARE ACTIVITY FOR ESTIMATED NUTRITIONAL NEEDS. RD RECOMMENDATIONS: 1. CONTINUE REGULAR DIET TOLERATED. 2. CONSULT RDN PRN. 3. RD WILL F/U 5-7 DAYS; LOW RISK. JARVIS DRAKE MS, RDN
--- NOTE | 2022-05-19 10:45 | NUR ---
PATIENT HAS TELEPSYCH CONSULT WITH DR PEDROZA AT THIS TIME. PER , PT IS PSYCHOTIC, HAS AUDITORY HALLUCINATION, ALSO PARANOID AND DELUSIONAL, HAS FALSE BELIEVE NURSES ARE TALKING ABOUT HIM AND DISRESPECTFUL TO HIM, ALSO BELIEVES DEMONS GIVE HIM HEADACHE, PER PT WAS YELLING AND CURSING IN THE ROOM EARLY DUE TO THE DEMONS WHO GAVE HIM THE HEADACHE. DR PEDROZA RECOMMEND TRANSFER PT TO [facility].
--- NOTE | 2022-05-19 12:45 | NUR ---
PT RESTING ON BED, NO DISTRESS, SITTER AT BED SIDE, ALL SAFETY MEASURE IN PLACE, CALL LIGHT WITHIN REACH, WILL CONTINUE TO MONITOR.
--- NOTE | 2022-05-19 14:25 | NUR ---
PT SIT AT BEDSIDE HAVING LUNCH AT THIS TIME. PT IS FOCUS ON TALK TO HIS CHILI PEPPER GRINDER, DENIED ANY SUICIDAL IDEATION AND HOMICIDAL IDEATION AT THIS TIME, DENIED AUDITORY HALLUCINATION AT THIS TIME. ALL SAFETY MEASURE IN PLACE, CALL LIGHT WITHIN REACH, SITTER AT BEDSIDE, WILL CONTINUE TO MONITOR.
[2022-05-19] MEDS ORDERED: HALOPERIDOL IM 5 MG/ML VIAL IM ONE ×2 (15:30→15:45)
--- NOTE | 2022-05-19 15:39 | NUR ---
PT HAD EPISODES SCREAMING AND YELLING INSIDE HIS ROOM. NOTED AUDITORY AND VISUAL HALLUCINATIONS. WENT OUTSIDE THE ROOM AND CONTINUALLY SCREAAMING "ALL THE DEMONS ON ME, THEY ARE HURTING ME. THEY PUT A DEMONS IN MY HEAD. THEY ARE HURTING ME AND I DID NOTHING WRONG". HOUSE SUP AND SECURITY AT BEDSIDE. CN AND RN COVERING MADE AWARE. RN COVERING CALLED DR SIMMS AND GET AN ORDER FOR HALDOL IM 10MG ONCE. HALDOL GIVEN IM AT LEFT DELTOID BY LITIGATION CLAIM REPRESENTATIVEJEROD ZURITA. PT NOW IN BED. CALM AND RESTING. 1:[address]
[2022-05-19] MEDS: HALOPERIDOL IM 5 MG/ML VIAL ONE ×3 (15:40→15:52)
[2022-05-19 16:00] VITALS: BP 114/66
--- NOTE | 2022-05-19 16:00 | NUR ---
BEHAVIOR EPISODE PATIENT NOTED SCREAMING IN HIS BEDROOM. NOTED WITH AUDITORY AND VISUAL HALLUCINATIONS. ATTEMPTED TO REDIRECT; UNSUCCESSFUL. PATIENT STATES THAT HE THINKS WE ARE POISONING HIM AND HURTING HIM. DISC PAD PLATE FILLER JARAD AND SECURITY SHOWED UP FOR ASSISTANCE. CHARGE NURSE XAVIER AWARE OF SITUATION. THIS RN CALLED DR. SIMMS FOR ORDER FOR AGITATION. RECEIVED ORDER FOR 10MG IM HALDOL X1 NOW. CHARGE NURSE XAVIER GOT MEDICATION FROM [employer]. MEDICATION WAS ADMINISTERED ON THE LEFT DELTOID BY ED RN YUDITH LOGAN AT 1539. PATIENT THEN REDIRECTED TO BED AND IS NOW CURRENTLY SITTING ON THE SIDE OF HIS BED. WILL CONTINUE TO MONITOR. Addendum: 05/19/22 at 1602 by Agency 09 JEROD RN 1:[address] FOR CLOSE OBSERVATION
--- NOTE | 2022-05-19 16:12 | NUR ---
PT WANDERING INSIDE THE ROOM. 1:1 SITTER OUTSIDE ROOM
--- NOTE | 2022-05-19 17:10 | NUR ---
MEDICATION ADMINISTERED PER MD ORDER, PT RESTING ON BED, TALKING TO SELF, ALL SAFETY MEASURE IN PLACE, CALL LIGHT WITHIN REACH, SITTER AT BEDSIDE
--- NOTE | 2022-05-19 17:28 | NUR ---
PT ASKING ABOUT AN UPDATE FOR HIS PLACEMENT. PT STATED ITS BORING HERE AT THE HOSPITAL. PT WANTS TO TALK TO THE SW. NURSE ADDRESSED PTS NEEDS. EXPLAINED THAT WE ARE STILL GETTING A PLACEMENT FOR HIM. PT VERBALIZED UNDERSTANDING AND WENT BACK TO HIS BED. PT THEN STARTED VISUAL AND AUDITORY HALLUCINATIONS AGAIN. STARTED YELLING AGAIN THEN KEPT QUIET. 1:1 SITTER OUTSIDE PT ROOM.
--- NOTE | 2022-05-19 19:20 | NUR ---
GAVE REPORT TO EDUCATION SUPERVISOR NURSE FOR CONTINUITY OF CARE. ALL NEEDS MET THROUGHOUT SHIFT. PT IS STABLE.
--- NOTE | 2022-05-19 19:21 | NUR ---
RECEIVED ENDORSEMENT FORM DUGLAS LINDO. PATIENT WAS IN BED ASLEEP BUT CAN BE AROUSED EASILY. PATIENT WAS STABLE DURING SHIFT REPORT. PATIENT DENIED ANY PAIN AT THIS TIME. NO NOTED S/SX OF PAIN/DISCOMFORT AT THIS TIME. NO NOTED S/SX OF RESPIRATORY DISTRESS. DENIES WANTING TO HURT HIMSELF AND WAS ENCOURAGED TO VERBALIZE HIS NEEDS FOR PRN MEDICATIONS NEEDED. PATIENT STATED HE UNDERSTANDS AND AGREES. SITTER AT BEDSIDE TO KEEP PATIENT SAFE FROM SUICIDAL ATTEMPTS. [email or web address]
[2022-05-19 20:00] VITALS: BP 114/78
[2022-05-19] MEDS: traZODone 50 MG TAB PO SCH (20:58)
--- NOTE | 2022-05-19 21:00 | NUR ---
NEW ORDERS FROM DR SIMMS REGARDING PRN MEDICATION FOR PATIENT FOR SEVERE AGITATION. NURSING WILL ENTER THE ORDERS AND VERIFY WITH [facility]. PATIENT WAS ABLE TO TAKE EVENING MEDICATION WITHOUT INCIDENT. SITTER IS AT BED SIDE FOR SAFETY AND PATIENT'S NEEDS. [email or web address]
--- NOTE | 2022-05-19 22:00 | NUR ---
Patient's Plan of Care was discussed and reviewed with RENTAL MANAGER: WILFRID KELLY
--- NOTE | 2022-05-19 22:26 | NUR ---
DR SIMMS GAVE ADJUSTED MEDICATION ORDER FOR THE LOW SUPPLY OF PREVIOUS ORDER. [facility] WILL BE NOTIFIED OR NEW ORDER AT THIS TIME. [email or web address]
--- NOTE | 2022-05-20 00:20 | NUR ---
RECEIVED PT SLEEPING, VISIBLE CHEST RISE AND FALL, NO SIGNS OF DISTRESS, MAINTAIN ON 5150, SITTER AT BEDSIDE, CONTINUE TO MONITOR CLOSELY.
[2022-05-20 04:00] VITALS: BP 102/50
--- NOTE | 2022-05-20 04:00 | NUR ---
PT SLEEPING, EASILY AROUSABLE, VITAL SIGNS STABLE, DENIES ANY PAIN, NO SOB NOTED, CALM AND COOPERATIVE AT THIS TIME, SITTER AT BEDSIDE, MONITORED CLOSELY.
--- NOTE | 2022-05-20 07:40 | NUR ---
[facility], PATIENT WAS ASLEEP AND STABLE AT CHANGE OF SHIFT. [email or web address]
--- NOTE | 2022-05-20 07:41 | NUR ---
RECEIVED REPORT FORM GOVERNMENT RELATIONS DIRECTOR NURSE FOR CONTINUITY OF CARE. PT IS SLEEPING. BREATHING IS EVEN AND UNLABORED ON ROOM AIR. NO IV SITE, PT REFUSED TO HAVE ONE. 5150 HOLD WILL 2299. PT WITH 1:1 SITTER. SAFETY MEASURES IN PLACE. WILL CONTINUE TO MONITOR.
--- NOTE | 2022-05-20 08:00 | NUR ---
Patient's Plan of Care was discussed and reviewed with RETORT LOAD EXPEDITER: DUGLAS SHEA
[2022-05-20] MEDS: PANTOPRAZOLE 40 MG TABEC PO SCH (09:49)
[2022-05-20] MEDS: risperiDONE 1 MG TAB PO SCH ×2 (09:50→17:44)
[2022-05-20] MEDS: ESCITALOPRAM 20 MG TAB PO SCH (09:50)
--- NOTE | 2022-05-20 09:52 | NUR ---
ADMINISTERED SCHEDULED MORNING MEDS. PT TEACHING ABOUT MEDS IS GIVEN. PT VERBALIZED UNDERSTANDING. PT IS COMPLIANT. 1:1 SITTER OUTSIDE PT ROOM. SAFETY MEASURES IN PLACE.
[2022-05-20] MEDS: OLANZapine 10 MG VIAL IM PRN (10:10)
--- NOTE | 2022-05-20 10:11 | NUR ---
PT HAS EPISODES OF YELLING/SCREAMING, WANDERING INSIDE HIS ROOM. PT YELLED "THEY'RE HURTING MY HEAD. THEY'RE DEMONS". PT KEPT ON HITTING HIS HEAD. SECURITY CAME IN. CN WAS AWARE. CN ADMINISTERED PRN ZYPREXA AT RIGHT DELTOID. PT TOLERATED WELL. PT NOW IN BED, EYES CLOSED, BREATHING EVEN AND UNLABORED. 1:[address] WILL CONTINUE TO MONITOR.
--- NOTE | 2022-05-20 12:00 | NUR ---
PT STILL SLEEPING. RESPIRATIONS EVEN AND UNLABORED. NO DISTRESS NOTED. PT WITH 1:1 SITTER. SAFETY PRECAUTIONS IN PLACE.
--- NOTE | 2022-05-20 15:36 | NUR ---
PT GET-UP, WENT TO THE REST ROOM, CALM, NO AGITATION THEN WENT BACK TO BED. 1:[address] WILL CONTINUE TO MONITOR.
[2022-05-20 16:00] VITALS: BP 105/59
--- NOTE | 2022-05-20 19:22 | NUR ---
GAVE REPORT TO FOREST FIRE PREVENTION SPECIALIST NURSE FOR CONTINUITY OF CARE. ALL NEEDS MET THROUGHOUT SHIFT. PT IS STABLE.
[2022-05-20 20:00] VITALS: BP 105/66
[2022-05-20] MEDS: traZODone 50 MG TAB PO SCH (21:09)
[2022-05-21 06:42] VITALS: BP 108/60
--- NOTE | 2022-05-21 07:10 | NUR ---
RECEIVED REPORT FORM COLD WORK OPERATOR NURSE FOR CONTINUITY OF CARE. PT IS SLEEPING. BREATHING IS EVEN AND UNLABORED ON ROOM AIR. NO DISTRESS NOTED. NO IV SITE, PT REFUSED TO HAVE ONE. WILL FOLLOW-UP TELE PSYCHE CONSULT FOR 5150 HOLD EXTENSION. PT WITH 1:1 SITTER. SAFETY MEASURES IN PLACE. WILL CONTINUE TO MONITOR.
--- NOTE | 2022-05-21 08:00 | NUR ---
Patient's Plan of Care was discussed and reviewed with SENIOR BUSINESS INTELLIGENCE ANALYST: DUGLAS, WILL CONTINUE WITH CURRENT POC.
--- NOTE | 2022-05-21 08:39 | NUR ---
DC PLANNING: CLIFFORD ATTEMPTED TO SPEAK WITH [facility], MULTIPLE CALLS WITH NO ANSWER, LEFT ASKING FOR UPDATE ON PLACEMENT [facility] DOCUMENTATION IS NOT AVAILABLE. CLIFFORD WILL ALSO HAVE THE [facility] FOLLOW UP WITH [facility] AND [facility] FACILITIES. CLIFFORD WILL FOLLOW. Addendum: 05/21/22 at 1350 by Shanelle Garnica CM DC PLANNING: PATIENT'S 5150 HOLD RENEWED BY GERALDINE BASURTO. CLIFFORD SPOKE WITH JUJU AT [facility], HE STATES THAT THERE ARE NO OPEN BEDS IN THE [facility], HE WILL TRY [facility] FOR PLACEMENT. CLIFFORD WILL FOLLOW. Addendum: 05/22/22 at 1553 by Shanelle Garnica CM DC PLANNING: CLIFFORD SPOKE WITH THE PATIENT AT BEDSIDE, HE WOULD LIKE TO GO TO [facility] HE'S BEEN THERE BEFORE. CLIFFORD SPOKE WITH CHRISTOS AT [facility], HE STATES A REFERRAL WAS SENT WITH NO ACCEPTANCE, HE WILL CALL THEM AGAIN. CM WILL FOLLOW.
--- NOTE | 2022-05-21 09:11 | NUR ---
CALLED GERALDINE BASURTO FOR EVALUATION.
[2022-05-21] MEDS: ESCITALOPRAM 20 MG TAB PO SCH (09:22)
[2022-05-21] MEDS: PANTOPRAZOLE 40 MG TABEC PO SCH (09:22)
[2022-05-21] MEDS: risperiDONE 1 MG TAB PO SCH ×2 (09:23→17:13)
--- NOTE | 2022-05-21 09:32 | NUR ---
ADMINISTERED SCHEDULED MORNING MEDS. PT IS COMPLIANT. PT DENIES HURTING HIMSELF OR OTHERS. DENIES VISUAL AND AUDITORY HALLUCINATIONS. PT IS CALM. SITTING IN BED, EATING BREAKFAST. PT WITH 1:1 SITTER. SAFETY PRECAUTIONS IN PLACE. WILL CONTINUE TO MONITOR.
--- NOTE | 2022-05-21 11:31 | NUR ---
[place]DINE PD AT BEDSIDE EVALUATING PT FOR 5150.
[2022-05-21] MEDS: ACETAMINOPHEN 325 MG TAB PO PRN (11:43)
--- NOTE | 2022-05-21 11:45 | NUR ---
PT COMPLAINED OF CAMPO 3/10, PRN PAIN MED GIVEN. 5150 HOLD EXTENDED BY GERALDINE BASURTO.
[2022-05-21] MEDS: OLANZapine 10 MG VIAL IM PRN (12:07)
--- NOTE | 2022-05-21 12:07 | NUR ---
PT HAD EPISODES OF SCREAMING. PT STATED "THERE'S DEMONS IN MY HEAD". PRN MEDS GIVEN. PT NOW IN BED, EATING, CALM. 1:[address].
--- NOTE | 2022-05-21 14:27 | NUR ---
Call center at this time still has not found placement , there are still no vacancy at all following facilities . [facility] will continue to monitor for placement.
[2022-05-21 16:00] VITALS: BP 122/70
--- NOTE | 2022-05-21 17:50 | NUR ---
PT IN BED, CALM. ASKED ABOUT UPDATE REGARDING HIS TRANSFER. NURSE ADDRESSED PT QUESTION. PT VERBALIZED UNDERSTANDING. STAYED SITTING IN BED. CALM WITHOUT SIGN OF AGITATION. 1:1 SITTER AT BEDSIDE.
--- NOTE | 2022-05-21 19:15 | NUR ---
GAVE REPORT TO DIRECTOR HEDIS NURSE FOR CONTINUITY OF CARE. ALL NEEDS MET THROUGHOUT SHIFT. PT IS STABLE.
--- NOTE | 2022-05-21 19:16 | NUR ---
RECEIVED SHIFTE ENDORSEMENT FROM [facility]. PATIENT WAS STABLE DURING REPORT. PATIENT ALERT AND ORIENTED X 4. ABLE TO VERBALIZE NEEDS AND AMBULATORY. PATIENT WANTED INFORMATION REGARDING HIS POSSIBLE DISCHARGE AND NURSING EDUCATED PATIENT ON THE UPDATES IN HIS CHART FOR MULTIPLE FACILITIES. PATIENT BREATHING EVENLY WITHOUT DISTRESS. PATIENT HAS NO COMPLAINTS OF PAIN/DISCOMFORT. SITTER CONTINUES AT BED SIDE FOR SUICIDAL IDEALIZATION AND HALLUCINATION TO HAVE SELF HARM. [email or web address]
[2022-05-21 20:00] VITALS: BP 122/67
--- NOTE | 2022-05-21 20:00 | NUR ---
Patient's Plan of Care was discussed and reviewed with FIRST COAT SANDER: ABRIL FIGUEROA
[2022-05-21] MEDS: traZODone 50 MG TAB PO SCH (20:10)
--- NOTE | 2022-05-21 21:30 | NUR ---
PATIENT IN BED ASLEEP. SIDE RAILS UP X2 FOR COMFORT AND ADJUSTMENTS. PATIENT IS BREATHING EVENLY WITHOUT DISTRESS. SITTER AT BEDSIDE FOR SAFETY TO PREVENT SUICIDAL ATTEMPTS. NO NOTED INCIDENT AT THIS TIME. [email or web address]
--- NOTE | 2022-05-21 23:55 | NUR ---
PATIENT WAS GIVEN PRN FOR RESTLESS D/T ITCHING. NURSING GAVE THE BENADRYL PRN. NO NOTED INCIDENT OF PAIN/DISCOMFORT. BREATHING WITHOUT DISTRESS. SIDE RAILS UP X 2. SITTER AT BESIDE FOR SAFETY. [email or web address]
[2022-05-22] MEDS: OLANZapine 10 MG VIAL IM PRN ×2 (00:44→18:45)
--- NOTE | 2022-05-22 00:47 | NUR ---
GAVE ZYPREXA INJECTION PER ORDERS FOR AGITATION. PATIENT WAS ABLE TO VERBALIZE HIS AGITATION AND REQUEST HIS PRN. NURSING COMMENDED HIM FOR HIS APPROPRIATE REQUEST AND GAVE. PATIENT TOLERATED THE INJECTION WELL. NURSING WILL CONTINUE TO MONITOR FOR SAFETY AND EFFECTIVENESS OF THE MEDICATION. [email or web address]
--- NOTE | 2022-05-22 02:10 | NUR ---
PATIENT IN BED ASLEEP. NO NOTED PAIN/DISCOMFORT. PATIENT BREATHING WITHOUT DISTRESS. SITTER AT BEDSIDE FOR SAFETY. [email or web address]
[2022-05-22 04:00] VITALS: BP 100/65
--- NOTE | 2022-05-22 04:41 | NUR ---
PATIENT IN BED ASLEEP. NO NOTED PAIN/DISCOMFORT. PATIENT BREATHING WITHOUT DISTRESS. SITTER AT BEDSIDE FOR SAFETY. [email or web address]
--- NOTE | 2022-05-22 06:09 | NUR ---
PATIENT EASY TO AROUSE WITH CALLING HIS NAME. NO NOTED PAIN/DISCOMFORT. NO RESPIRATORY DISTRESS. PATIENT REFUSED CARE FOR SHOWER AND ALL PERSONAL HYGIENE. STATEDE HE WILL DO IT LATER. SIDE RAILS UP X 2. SITTER AT BED SIDE. [email or web address]
--- NOTE | 2022-05-22 07:26 | NUR ---
ENDORSED PATIENT IN STABLE CONDITION TO SANDR[facility] NEWSOME. PATIENT WAS NOTED IN BED ASLEEP EASY TO AROUSE. SITTER AT BEDSIDER SIDE RAILS UP X 2. [email or web address]
[2022-05-22 08:00] VITALS: BP 91/43
[2022-05-22] MEDS: risperiDONE 1 MG TAB PO SCH ×2 (09:00→16:39)
[2022-05-22] MEDS: ESCITALOPRAM 20 MG TAB PO SCH (09:00)
[2022-05-22] MEDS: PANTOPRAZOLE 40 MG TABEC PO SCH (09:00)
--- NOTE | 2022-05-22 10:26 | NUR ---
Called the [facility] at [phone] and left a message to call us back for requesting an update on psych placements.
--- NOTE | 2022-05-22 10:57 | NUR ---
called [facility] and spoke to [place]fin and stated that [facility], and sent referrals to few placements.
--- NOTE | 2022-05-22 13:19 | NUR ---
RECEIVED ENDORSEMENT OF PT, PT ASLEEP IN BED WITH 1:1 SITTER. ON ROOM AIR WITH CHEST RISING AND FALLING EVEN AND UNLABORED. ALL SAFETY MEASURES IN PLACE, WILL CONTINUE TO MONITOR.
--- NOTE | 2022-05-22 15:05 | NUR ---
PT BACK IN BED AFTER SUPERVISED SHOWER. 1:1 SITTER AT BEDSIDE. ALL SAFETY MEASURES IN PLACE, CALL LIGHT WITHIN REACH. WILL CONTINUE TO MONITOR.
[2022-05-22 16:00] VITALS: BP 110/69
--- NOTE | 2022-05-22 17:07 | NUR ---
PT PROVIDED WITH DECAF COFFEE PER REQUEST. SITTER 1:1 WITH PT. PT STABLE
--- NOTE | 2022-05-22 17:44 | NUR ---
PT STATING HE WANTS TO SPEAK WITH HIS MOM RIGHT NOW, ATTEMPTED TO CALL MOTHER BUT UNABLE TO GET AHOLD OF HER. VOICEMAIL LEFT. PT MADE AWARE OF ATTEMPT,STATES HE WANTS ME TO TRY AGAIN. STATED I WILL TRY AGAIN IN 15 MINUTES
--- NOTE | 2022-05-22 18:04 | NUR ---
ATTEMPTED TO CALL MOMKRISHNAA AGAIN. NO ANSWER, VOICEMAIL LEFT. NOTIFIED PT OF SECOND ATTEMPT. PT SILENT WITH NO RESPONSE. 1:1 SITTER.
--- NOTE | 2022-05-22 18:21 | NUR ---
CESIA, MOTHER RETURNED CALL. SPEAKING WITH SON. 1:1 SITTER
--- NOTE | 2022-05-22 18:51 | NUR ---
PT AGITATED YELLING WHY AREN'T THEY TRANSFERRING HIM AND STATING HIS MOTHERS BOYFRIEND IS TALKING BAD ABOUT HIM. PRN OLANZAPINE IM ADMINISTERED PER MD ORDER.
--- NOTE | 2022-05-22 18:57 | NUR ---
SITTER 1:[address]Y MEASURES IN PLACE, PT WILL BE ENDORSED TO CLIENT SUPPORT PROFESSIONAL NURSE
--- NOTE | 2022-05-22 19:05 | NUR ---
RECD. RESTING IN BED, AWAKE, A/OX4. RESPIRATION EVEN AND UNLABORED. AMBULATORY TO THE BATHROOM, INDEPENDENT. WHEN INQUIRED HOW HE IS FEELING, DID NOT RESPOND. WITH A SHARP LOOK IN HIS EYES. WHEN INQUIRED IF HE WANTS SOMETHING BEFORE NURSE WILL LEAVE THE ROOM, JUST SHAKES HEAD. ON 1:1 SITTER MONITORING. DENIES PAIN 0/10.
--- NOTE | 2022-05-22 20:00 | NUR ---
Patient's Plan of Care was discussed and reviewed with BELGICA NIELSEN.
[2022-05-22] MEDS: traZODone 50 MG TAB PO SCH (20:54)
--- NOTE | 2022-05-22 20:55 | NUR ---
SCHEDULED MEDICATION FOR THE NIGHT ADMINISTERED.
[2022-05-23] VITALS: BP 114/58
--- NOTE | 2022-05-23 | NUR ---
SLEEPING COMFORTABLY IN BED. RESPIRATION EVEN AND UNLABORED.
--- NOTE | 2022-05-23 02:00 | NUR ---
ON HIS RIGHT SIDE, ASLEEP. NO DISTRESS NOTED.
--- NOTE | 2022-05-23 04:00 | NUR ---
CONDITION REMAIN STABLE. 1:1 SITTER CONTINUOUSLY MONITORING PATIENT.
--- NOTE | 2022-05-23 06:10 | NUR ---
ABLE TO SLEEP WELL. CONDITION REMAIN STABLE. SAFETY MAINTAINED DURING THE SHIFT.
--- NOTE | 2022-05-23 07:20 | NUR ---
ENDORSED TO AM SHIFT NURSE FOR CONTINUITY OF CARE.
--- NOTE | 2022-05-23 07:52 | NUR ---
GOT REPORT FROM THE NIGHT NURSE, PT HAS SITTER AND PT IS SLEEPING , NO SOB.[id number]
[2022-05-23] MEDS: ESCITALOPRAM 20 MG TAB PO SCH (09:05)
[2022-05-23] MEDS: risperiDONE 1 MG TAB PO SCH ×2 (09:06→16:25)
[2022-05-23] MEDS: PANTOPRAZOLE 40 MG TABEC PO SCH (09:06)
--- NOTE | 2022-05-23 10:15 | NUR ---
KAILASH CALL [facility] AT [phone] TO GET PSYCH PLACEMENT SEARCH STATUS. SPOKE TO CHRISTOS WHO STATED THAT THERE IS NO BEDS AVAILABLE BEDS TODAY IN FACILITIES WHERE PATIENT'S CLINICAL PACKETS HAVE BEEN SEND. KAILASH THANKED HIM FOR THE INFORMATION AND ENDED THE CALL. KAILASH LINDER CALL JENN[address]ER WAY FROM [facility] AT AT ABOUT 10:15 AM. TO SEARCH FOR PATIENT'S PLACEMENT TO THEIR FACILITY. LICO REPORTED THAT THERE WAS NO MEDICAL BEDS AVAILABLE TODAY AND POSSIBLY AN OPENING BUT UNTIL SATURDAY. KAILASH THANK HER FOR THE INFORMATION AND ENDED THE CALL.
[2022-05-23 12:50] VITALS: BP 114/58
[2022-05-23 16:48] VITALS: BP 129/80
[2022-05-23] MEDS: OLANZapine 10 MG VIAL IM PRN (19:04)
--- NOTE | 2022-05-23 19:14 | NUR ---
MESSAGED DR. BECERRA TO INFORM HER THAT THE PATIENT'S 5150 HOLD WAS CLEARED BY PSYCH IN NOTES. SHE STATED SHE DID NOT WANT TO D/C TODAY AND WANTED TO D/C TOMORROW.
--- NOTE | 2022-05-23 19:16 | NUR ---
RECEIVED SHIFT REPORT FROM SANDRA NEWSOME. PATIENT WAS STABLE AT THE CHANGE OF SHIFT. PATIENT HAS BEEN MADE AWARE OF HIS DISCHARGE TOMORROW. PATIENT IS ALERT AND ORIENTED X 4 BUT CONTINUES TO ASK ABOUT HIS PERSONAL BELONGINGS AND WAS REMINDED ALL WILL BE GIVEN TOMORROW. PATIENT STATED HE UNDERSTOOD AND SAT ON HIS BED AWAITING EVENING MEDICATION. PATIENT'S ROOM IS NOT EQUIPPED WITH CALL LIGHT SO NURSING WILL FREQUENT HIS ROOM ORE FREQUENT FOR ALL ANTICIPATED NEEDS. [email or web address]
--- NOTE | 2022-05-23 21:50 | NUR ---
PATIENT WAS GIVEN MEDICATION AND REMAINS IN BED WITHOUT INCIDENT. NO COMPLAINT OF PAIN/DISCOMFORT. PATIENT IS BREATHING WITHOUT RESPIRATORY DISTRESS. SIDE RAILS UP X 2 FOR SAFETY AND ADJUSTMENTS. NURSING WILL FREQUENT THE ROOM OFTEN BECAUSE NO CALL LIGHT AVAILABLE IN HIS ROOM FOR PREVIOUS NEEDS OF PATIENT WANTING TO HARM SELF. [email or web address]
[2022-05-23] MEDS: traZODone 50 MG TAB PO SCH (21:52)
--- NOTE | 2022-05-23 23:50 | NUR ---
PATIENT ASLEEP. NO NOTED S/SX OF PAIN/DISCOMFORT. PATIENT IS BREATHING WITHOUT RESPIRATORY DISTRESS. SIDE RAILS UP X 2 FOR SAFETY AND ADJUSTMENTS. NURSING WILL FREQUENT THE ROOM OFTEN BECAUSE NO CALL LIGHT AVAILABLE. [email or web address]
[2022-05-24 04:00] VITALS: BP 102/61
--- NOTE | 2022-05-24 04:19 | NUR ---
PATIENT ASLEEP. NO NOTED S/SX OF PAIN/DISCOMFORT. PATIENT IS BREATHING WITHOUT RESPIRATORY DISTRESS. CHEST RISING AND FALLING EVENLY WITHOUT LABOR. SIDE RAILS UP X 2 FOR SAFETY AND ADJUSTMENTS. [email or web address]
--- NOTE | 2022-05-24 05:01 | NUR ---
PATIENT EASY TO AROUSE WHEN NAME IS CALLED. ABLE TO TAKE VITAL SIGNS. PATIENT EXCITED ABOUT POSSIBLE DISCHARGE FOR TODAY. SIDE RAIL X 2. NO PAIN NO RESPIRATORY PROBLEMS. [email or web address]
--- NOTE | 2022-05-24 07:04 | NUR ---
ENDORSED PATIENT TO JUAN LINDO, PATIENT WAS STABLE AT THE CHANGE OF SHIFT. [email or web address]
--- NOTE | 2022-05-24 07:05 | NUR ---
RECEIVED REPORT FROM COLLECTION SYSTEMS FOREMAN NURSE FOR CONTINUITY OF CARE FOR CONTINUITY OF CARE. PATIENT ASLEEP NO DISTRESS NOTED ON ROOM AIR. NO IV ACCESS. ALL SAFETY MEASURE IN PLACE.
--- NOTE | 2022-05-24 07:30 | NUR ---
RECEIVED REPORT FROM BELGICA MARTINEZ AND DISCUSSED PLAN OF CARE.
[2022-05-24] MEDS: risperiDONE 1 MG TAB PO SCH (08:54)
[2022-05-24] MEDS: ESCITALOPRAM 20 MG TAB PO SCH (08:54)
[2022-05-24] MEDS: PANTOPRAZOLE 40 MG TABEC PO SCH (08:54)
--- NOTE | 2022-05-24 08:58 | NUR ---
PATIENT AWAKE NO DISTRESS NOTED. GIVEN HIS MORNING MEDICATION AND DR. BECERRA SEE PATIENT AND INFORM HIM OF DISCHARGE ORDER AND INSTRUCTED HIM TO MAKE SURE HE TAKE HIS RISPERIDONE EVERY DAY
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
--- NOTE | 2022-05-24 10:45 | NUR ---
PATIENT ALERT AND ORIENTED. ABLE TO MAKE NEEDS KNOWN RESPIRATION EVEN AND NOT LABORED GIVEN DISCHARGE PACKET WITH INSTRUCTION ALSO GIVE RESOURCE PACKET. I ASKED IF SOMEONE CAN PICK HIM UP AND SAID NO I CAN GO TO MY FRIEND HOUSE ON MY OWN. HI NAME IS EBENEZER ADDRESS [address] [place] [address]. NAME BAND REMOVED. OFFERED VOUCHER BUT HE DECLINE. PATIENT LEFT WALKING ON STABLE CONDITION WITH ALL HIS BELONGING.
== END 2022-05-24 10:45 | disposition home or self-care (01) | DRG 816 ==
LOC: MED 21:33 → MTU 05-13 13:08
PROVIDERS: ADMIT Family Medicine; ATTEND Family Medicine
DX: T51.91XA Toxic effect of unspecified alcohol, accidental (unintentional), initial encounter (principal); G92.9 Unspecified toxic encephalopathy; F25.1 Schizoaffective disorder, depressive type; R45.851 Suicidal ideations; K75.81 Nonalcoholic steatohepatitis (NASH); F10.129 Alcohol abuse with intoxication, unspecified; E87.6 Hypokalemia; D72.829 Elevated white blood cell count, unspecified; K21.9 Gastro-esophageal reflux disease without esophagitis; F32.A Depression, unspecified; F17.210 Nicotine dependence, cigarettes, uncomplicated; Z20.822 Contact with and (suspected) exposure to COVID-19; J45.909 Unspecified asthma, uncomplicated; Y90.6 Blood alcohol level of 120-199 mg/100 ml; F12.90 Cannabis use, unspecified, uncomplicated
CPT/HCPCS: 36415; 76705; 80048; 80053; 80305; 82150; 83690; 83735; 83880; 84100; 84439; 84443; 85025; 85610; 87081; 87635-QW; 96372; 99285; C9803-CS; G0480; G0482; J1630; J2060; J3490; Q0092; Q0163

== ENCOUNTER 2022-10-01 16:57 | Emergency (ER) | payer MEDICAID, OTHER ==
[~2022-10-01] VITALS: Ht 177.8 cm; Wt 99.8 kg
[~2022-10-01 16:57] MED LIST changes: -SERT-515 PO; -TRAZ-466 PO
--- NOTE | 2022-10-01 17:00 | NUR ---
DAVE ALS TO ER BED 5
[2022-10-01 17:06] VITALS: BP 114/61
--- NOTE | 2022-10-01 17:07 | NUR ---
PT ON 5150 HOLD PER [place] PD OFFICER - Timothy ALLEN
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
--- NOTE | 2022-10-01 17:18 | NUR ---
[place] PD AT BEDSIDE
[2022-10-01 17:41] LABS: APPEARANCE,URINE CLEAR (CLEAR); BILIRUBIN,URINE NEGATIVE (NEGATIVE); BLOOD, URINE NEGATIVE (NEGATIVE); COLOR,URINE YELLOW (YELLOW); LEUKOCYTE ESTERASE ,URINE NEGATIVE (NEGATIVE); NITRITE, URINE NEGATIVE (NEGATIVE); UGLUCOSE NEGATIVE (NEGATIVE)
[2022-10-01 17:52] LABS: BARBITURATE, URINE NEGATIVE ng/ml (NEG <=200); BENZODIAZEPINE, URINE NEGATIVE ng/mL (NEG <=200); CANNABINOID, URINE POSITIVE ng/mL (NEG <=50); COCAINE, URINE NEGATIVE ng/mL (NEG <=300); OPIATE, URINE NEGATIVE ng/mL (NEG <=2000); PHENCYCLIDINE SCREEN,URINE NEGATIVE ng/mL (NEG <=25)
[2022-10-01 17:52] LABS: BASOPHILS # (AUTO) 0.1 K/uL (0.00-0.22); BASOPHILS % (AUTO) 1.1 % (0.0-2.0); EOSINOPHILS # (AUTO) 0.2 K/uL (0-0.4); EOSINOPHILS % (AUTO) 2.1 % (0.0-4.0); HEMATOCRIT 42.9 % (36-52); HEMOGLOBIN 14.6 g/dL (12.0-18.0); LYMPHOCYTES # (AUTO) 3.3 K/uL (2.0-11.5); LYMPHOCYTES % (AUTO) 33.2 % (20.5-51.1); MEAN CORPUSCULAR HEMOGLOBIN 28 pg (27-31); MEAN CORPUSCULAR HGB CONC 34 g/dL (33-37); MEAN CORPUSCULAR VOLUME 83.4 fL (80-94); MONOCYTES # (AUTO) 0.7 K/uL (0.8-1.0); MONOCYTES % (AUTO) 6.8 % (1.7-9.3); NEUTROPHILS # (AUTO) 5.7 K/uL (1.8-7.7); NEUTROPHILS % (AUTO) 56.8 % (42.2-75.2); PLATELET COUNT (AUTO) 374 K/uL (140-450); RED BLOOD CELL COUNT(AUTO) 5.15 MIL/uL (4.20-6.10); RED CELL DISTRIBUTION WIDTH 14.2 % (11.6-13.7)
[2022-10-01] MEDS ORDERED: WATER STERILE 10 ML MC ONE (17:55)
[2022-10-01] MEDS ORDERED: ZIPRASIDONE MESYLATE 20 MG/ML VIAL IM ONE (17:55)
[2022-10-01 18:06] LABS: CREATININE 0.7 mg/dL (0.6-1.3); GFR ARICAN-AMERICAN 173 mL/min (>90); GLUCOSE 115 mg/dL (74-106); UREA NITROGEN, BLOOD 9 mg/dL (7-18)
[2022-10-01 18:09] LABS: ANION GAP 18.7 (8-16); CARBON DIOXIDE 22.8 mmol/L (21-32); CHLORIDE 107 mmol/L (98-107); POTASSIUM 3.5 mmol/L (3.5-5.1); SODIUM SERUM 145 mmol/L (136-145)
[2022-10-01 18:20] LABS: ACETAMINOPHEN 29.4 ug/ml (10-30)
[2022-10-01 18:50] LABS: ALBUMIN 3.9 g/dL (3.4-5.0); ASPARTATE AMINOTRANSFERASE 29 U/L (15-37); TOTAL BILIRUBIN 0.2 mg/dL (0.0-1.0)
--- NOTE | 2022-10-01 20:05 | NUR ---
PT IS SLEEPING . RESP EVEN AND UNLABORED. HOB ELEVATED. VS TAKEN AND WNL. Q15 SI CHECKS BEING KEPT. PT IS IN VIEW.
--- NOTE | 2022-10-02 01:21 | NUR ---
PT APPEARS TO BE RESTING WITH EQUAL RISE AND FALL OF CHEST WALL. OPENS TO TOUCH. ALL NEEDS MET AT THIS TIME. BED LOCKED IN LOWEST POSITION, SIDE RAILS X2 FOR SAFETY.
--- NOTE | 2022-10-02 02:33 | NUR ---
PT PROVIDED WITH WATER PER REQUEST.
--- NOTE | 2022-10-02 05:40 | NUR ---
Patient appears to be resting comfortably in bed. Vital Signs within normal limits. Respirations even and unlabored.
--- NOTE | 2022-10-02 07:22 | NUR ---
REPORT GIVEN TO BELGICA GONZALES
--- NOTE | 2022-10-02 07:22 | NUR ---
REPORT RECEIVED FROM RADHA NEWSOME. ASSUMED CARE AT THIS TIME.
--- NOTE | 2022-10-02 07:50 | NUR ---
pt provided with breakfast. pt awake and eating in bed
[2022-10-02] MEDS ORDERED: ONDANSETRON 4 MG ODT PO ONE (08:55)
[2022-10-02] MEDS ORDERED: ACETAMINOPHEN 325 MG TAB PO ONE (08:55)
--- NOTE | 2022-10-02 12:00 | NUR ---
pt provided with lunch. pt awake and eating in bed
--- NOTE | 2022-10-02 13:12 | NUR ---
PT ON TELEPSYCH CALL W/ MD PHILLIPS
[2022-10-02] MEDS ORDERED: ACETAMINOPHEN EXTRA STRENGTH 500 MG TAB PO ONE (13:20)
[2022-10-02] MEDS ORDERED: ALUMINUM HYD/MAG/SIMETHICONE 30 ML UDC PO ONE (13:20)
--- NOTE | 2022-10-02 13:21 | NUR ---
SECURITY CALLED FOR PB
--- NOTE | 2022-10-02 13:21 | NUR ---
PER MD PHILLIPS. PT OFF HOLD
[2022-10-02 14:34] VITALS: BP 127/79
--- NOTE | 2022-10-02 14:34 | NUR ---
Patient discharged with v/s stable. Written and verbal after care instructions FOR DYSPHORIA given and explained. Patient verbalized understanding. Ambulatory with steady gait. All questions addressed prior to discharge. Advised to follow up with PMD. MENTAL HEALTH AND SUBSTANCE ABUSE PACKET PROVIDED
--- NOTE | 2022-10-02 14:34 | NUR ---
Note kassi in EDM - 10/02/22 at 1437 by PHSEP Patient discharged with v/s stable. Written and verbal after care instructions FOR DYSPHORIA given and explained. Patient verbalized understanding. Ambulatory with steady gait. All questions addressed prior to discharge. Advised to follow up with PMD.
== END 2022-10-02 14:34 | disposition home or self-care (01) ==
LOC: MED 16:57
DX: R45.851 Suicidal ideations (principal); Z20.822 Contact with and (suspected) exposure to COVID-19; J45.909 Unspecified asthma, uncomplicated; K21.9 Gastro-esophageal reflux disease without esophagitis
CPT/HCPCS: 36415; 80053; 80305; 81003; 85025; 87426; 87635; 96372; 99285; C9803; G0480; G0482; J3486; Q0162

== ENCOUNTER 2023-03-29 20:44 | Emergency (ER) | payer OTHER ==
[~2023-03-29] VITALS: Ht 177.8 cm; Wt 90.7 kg
--- NOTE | 2023-03-29 23:40 | NUR ---
Dr. Galdamez examining patient.
[2023-03-29] MEDS ORDERED: HYDROcodone/APAP 5/325 MG 1 TAB TAB PO ONE (23:45)
--- NOTE | 2023-03-30 00:29 | NUR ---
Patient returned back from X-ray.
[2023-03-30] MEDS ORDERED: IBUPROFEN 600 MG TAB PO ONE (01:30)
[2023-03-30 02:17] LABS: ALBUMIN 3.5 g/dL (3.4-5.0); ANION GAP 10.9 (8-16); ASPARTATE AMINOTRANSFERASE 39 U/L (15-37); CARBON DIOXIDE 27.5 mmol/L (21-32); CHLORIDE 102 mmol/L (98-107); GFR ARICAN-AMERICAN 114 mL/min (>90); GLUCOSE 123 mg/dL (74-106); POTASSIUM 3.4 mmol/L (3.5-5.1); SODIUM SERUM 137 mmol/L (136-145); TOTAL BILIRUBIN 0.4 mg/dL (0.0-1.0); UREA NITROGEN, BLOOD 7 mg/dL (7-18)
[2023-03-30 02:18] LABS: SALICYLATE < 2.8 mg/dL (2.8-20.0)
[2023-03-30 02:19] LABS: ACETAMINOPHEN < 0.5 ug/ml (10-30)
[2023-03-30 02:20] LABS: BASOPHILS # (AUTO) 0.1 K/uL (0.00-0.22); BASOPHILS % (AUTO) 1.3 % (0.0-2.0); EOSINOPHILS # (AUTO) 0.5 K/uL (0-0.4); EOSINOPHILS % (AUTO) 4.5 % (0.0-4.0); HEMATOCRIT 37.3 % (36-52); HEMOGLOBIN 12.8 g/dL (12.0-18.0); LYMPHOCYTES # (AUTO) 2.7 K/uL (2.0-11.5); LYMPHOCYTES % (AUTO) 26.2 % (20.5-51.1); MEAN CORPUSCULAR HEMOGLOBIN 29 pg (27-31); MEAN CORPUSCULAR HGB CONC 34 g/dL (33-37); MEAN CORPUSCULAR VOLUME 84.2 fL (80-94); PLATELET COUNT (AUTO) 403 K/uL (140-450); RED BLOOD CELL COUNT(AUTO) 4.43 MIL/uL (4.20-6.10); RED CELL DISTRIBUTION WIDTH 13.8 % (11.6-13.7); WHITE BLOOD COUNT (AUTO) 10.4 K/uL (4.8-10.8)
--- NOTE | 2023-03-30 03:08 | NUR ---
Patient refused to sign, D/C without D/C papers, Patient had been escorted by Security.
== END 2023-03-30 03:08 | disposition home or self-care (01) ==
LOC: MED 20:44
DX: M79.601 Pain in right arm (principal); M25.511 Pain in right shoulder; J45.909 Unspecified asthma, uncomplicated; K21.9 Gastro-esophageal reflux disease without esophagitis; Z79.899 Other long term (current) drug therapy
CPT/HCPCS: 36415; 72080; 73030; 73060; 80053; 85025; 99284; G0480; G0482

== ENCOUNTER 2023-03-30 21:48 | Emergency (ER) | payer OTHER ==
[~2023-03-30] VITALS: Ht 172.7 cm; Wt 81.6 kg
[2023-03-30 22:18] VITALS: BP 131/83
--- NOTE | 2023-03-30 23:18 | NUR ---
PT TO BED 12
--- NOTE | 2023-03-31 00:19 | NUR ---
Patient discharged with v/s stable. Written and verbal after care instructions given and explained. Patient verbalized understanding. Ambulatory with steady gait. All questions addressed prior to discharge. Advised to follow up with PMD.
== END 2023-03-31 00:19 | disposition home or self-care (01) ==
LOC: MED 21:48
DX: S50.311A Abrasion of right elbow, initial encounter (principal); V49.88XA Car occupant (driver) (passenger) injured in other specified transport accidents, initial encounter; Y93.89 Activity, other specified; Y92.89 Other specified places as the place of occurrence of the external cause; Y99.8 Other external cause status
CPT/HCPCS: 73080; 99283

== ENCOUNTER 2023-03-31 02:40 | Emergency (ER) | payer OTHER ==
[~2023-03-31] VITALS: Ht 170.2 cm; Wt 81.6 kg
[2023-03-31 05:13] VITALS: BP 140/78
[2023-03-31] MEDS ORDERED: IBUPROFEN 800 MG TAB PO ONE (05:15)
--- NOTE | 2023-03-31 05:20 | NUR ---
PT TAKEN TO BED 5
--- NOTE | 2023-03-31 06:15 | NUR ---
PT SPEAKING WITH DR LYLE VIA TELEPSYCH
--- NOTE | 2023-03-31 06:47 | NUR ---
PT SPOKE PSYCHIATRIST FOR EVALUATION
--- NOTE | 2023-03-31 07:08 | NUR ---
PSYCHIATRIST SPOKE WITH DR BILLY , PT NEEDS TO BE MEDICALY CLEARED THEN 5939 WAS RECOMMENDED
--- NOTE | 2023-03-31 08:00 | NUR ---
ASSUMED PATIENT CARE, NURSING ASSESSMENT COMPLETED.
[2023-03-31 08:21] LABS: BASOPHILS # (AUTO) 0.1 K/uL (0.00-0.22); BASOPHILS % (AUTO) 0.9 % (0.0-2.0); EOSINOPHILS # (AUTO) 0.4 K/uL (0-0.4); EOSINOPHILS % (AUTO) 4.3 % (0.0-4.0); HEMOGLOBIN 12.1 g/dL (12.0-18.0); LYMPHOCYTES # (AUTO) 1.8 K/uL (2.0-11.5); LYMPHOCYTES % (AUTO) 19.1 % (20.5-51.1); MEAN CORPUSCULAR HEMOGLOBIN 29 pg (27-31); MEAN CORPUSCULAR HGB CONC 34 g/dL (33-37); MEAN CORPUSCULAR VOLUME 85.2 fL (80-94); MONOCYTES # (AUTO) 0.7 K/uL (0.8-1.0); MONOCYTES % (AUTO) 7.8 % (1.7-9.3); NEUTROPHILS # (AUTO) 6.3 K/uL (1.8-7.7); NEUTROPHILS % (AUTO) 67.9 % (42.2-75.2); PLATELET COUNT (AUTO) 358 K/uL (140-450); RED BLOOD CELL COUNT(AUTO) 4.23 MIL/uL (4.20-6.10); RED CELL DISTRIBUTION WIDTH 13.5 % (11.6-13.7); WHITE BLOOD COUNT (AUTO) 9.2 K/uL (4.8-10.8)
[2023-03-31 08:48] LABS: ALBUMIN 3.2 g/dL (3.4-5.0); ANION GAP 10.8 (8-16); ASPARTATE AMINOTRANSFERASE 29 U/L (15-37); CARBON DIOXIDE 28.9 mmol/L (21-32); CHLORIDE 104 mmol/L (98-107); GFR ARICAN-AMERICAN 114 mL/min (>90); GLUCOSE 116 mg/dL (74-106); POTASSIUM 3.7 mmol/L (3.5-5.1); SODIUM SERUM 140 mmol/L (136-145); TOTAL BILIRUBIN 0.3 mg/dL (0.0-1.0); UREA NITROGEN, BLOOD 7 mg/dL (7-18)
[2023-03-31 08:59] LABS: ACETAMINOPHEN < 0.5 ug/ml (10-30); SALICYLATE < 2.8 mg/dL (2.8-20.0)
[2023-03-31] MEDS ORDERED: risperiDONE 1 MG TAB PO SCH (09:00)
[2023-03-31] MEDS: cephALEXin 500 MG CAP PO SCH ×3 (09:15→17:03)
[2023-03-31 09:20] LABS: BARBITURATE, URINE NEGATIVE ng/ml (NEG <=200); BENZODIAZEPINE, URINE NEGATIVE ng/mL (NEG <=200); COCAINE, URINE NEGATIVE ng/mL (NEG <=300); OPIATE, URINE NEGATIVE ng/mL (NEG <=2000); PHENCYCLIDINE SCREEN,URINE NEGATIVE ng/mL (NEG <=25)
[2023-03-31 09:21] LABS: CANNABINOID, URINE POSITIVE ng/mL (NEG <=50)
--- NOTE | 2023-03-31 09:45 | NUR ---
PT MEDICALLY CLEARED PER MD BILLY
--- NOTE | 2023-03-31 09:46 | NUR ---
GERALDINE BASURTO CALLED FOR 5150 EVALUATION. OFFICER TO BE SENT OUT.
--- NOTE | 2023-03-31 09:56 | NUR ---
[place] PD AT BEDSIDE
--- NOTE | 2023-03-31 10:11 | NUR ---
PT. PLACED ON 5150 FOR DTS BY POLICE DEPT. PT. IS CALM AND COOPERATIVE NOW. NO ACUTE DISTRESS. PT. IS ON DIRECT LINE OF SIGHT OF RN STATION AND ALL STAFF NOTIFIED. MADE AWARE
--- NOTE | 2023-03-31 10:32 | NUR ---
PT SUMMARY/INTAKE FAXED TO [facility]. FAX COMPLETED
--- NOTE | 2023-03-31 11:00 | NUR ---
SSI COMPLETED W/RN. PT VERBALIZED TO RN NO SUICIDAL THOUGHTS.
--- NOTE | 2023-03-31 11:45 | NUR ---
PT IN ROOM SLEEPING.
--- NOTE | 2023-03-31 16:02 | NUR ---
PT CALM AND RESTING.
--- NOTE | 2023-03-31 18:17 | NUR ---
ATTEMPTED TO GIVE PHONE REPORT TO [facility] BUT WAS ADVISED TO CALL IN AN HOUR THE PATIENT IS NOT IN THE SYSTEM YET.
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
--- NOTE | 2023-03-31 18:57 | NUR ---
Merari solitario in [facility] - 03/31/23 at 1857 by MARIAM IVIS ZAMORA
--- NOTE | 2023-03-31 18:58 | NUR ---
PT SLEEPING. SAFETY MAINTAINED.
[2023-03-31 19:33] VITALS: BP 113/68
--- NOTE | 2023-03-31 20:40 | NUR ---
TRANSPORT HERE FOR PT
--- NOTE | 2023-03-31 20:41 | NUR ---
Patient to be transferred to [facility][1]. Is being transferred due to . Receiving facility has accepting physician and available space. ER physician has signed transfer form. Patient or responsible green party has agreed to transfer and signed form. Patient belongings inventoried and will be sent with patient. Copy of nursing notes, lab reports, EKG, Physicians Orders and X-rays to be sent with patient. Report called to NURSE RN at receiving facility. [facility] ambulance service has been called for transfer. ETA is 60 MIN.
== END 2023-03-31 20:41 | disposition short-term general hospital (02) ==
LOC: MED 02:40
DX: R45.851 Suicidal ideations (principal); Z20.822 Contact with and (suspected) exposure to COVID-19; K21.9 Gastro-esophageal reflux disease without esophagitis; J45.909 Unspecified asthma, uncomplicated
CPT/HCPCS: 36415; 80053; 80305; 85025; 87426; 99285; G0480; G0482

== ENCOUNTER 2023-04-02 22:14 | Emergency (ER) | payer OTHER ==
[~2023-04-02] VITALS: Ht 167.6 cm; Wt 84.8 kg
[2023-04-02 22:25] VITALS: BP 130/96
--- NOTE | 2023-04-02 22:34 | NUR ---
Dr. Gonzalez examining patient.
[2023-04-02] MEDS ORDERED: RISP0.5T3 PO (22:45)
[2023-04-02] MEDS ORDERED: QUET200T PO (22:45)
[2023-04-02 22:50] VITALS: BP 130/96
--- NOTE | 2023-04-02 22:50 | NUR ---
Patient discharged with v/s stable. Written and verbal after care instructions given and explained. Patient alert, oriented and verbalized understanding of instructions. Ambulatory with steady gait. All questions addressed prior to discharge. ID band removed. Patient advised to follow up with PMD. Rx of RISPERADEL AND QUETIAPINE given. Patient educated on indication of medication including possible reaction and side effects. Opportunity to ask questions provided and answered.
== END 2023-04-02 22:50 | disposition home or self-care (01) ==
LOC: MED 22:14
DX: Z76.0 Encounter for issue of repeat prescription (principal); J45.909 Unspecified asthma, uncomplicated; K21.9 Gastro-esophageal reflux disease without esophagitis; R45.851 Suicidal ideations; F20.9 Schizophrenia, unspecified; F32.A Depression, unspecified
CPT/HCPCS: 99281; 99283

== ENCOUNTER 2024-04-11 14:15 | Emergency (ER) | payer MEDICAID, OTHER ==
[~2024-04-11] VITALS: Ht 177.8 cm; Wt 95.3 kg
[~2024-04-11 14:15] MED LIST changes: +QUET200T PO; +RISP0.5T3 PO
[2024-04-11 14:19] VITALS: BP 114/53; PULSE 102; RESP 16; TEMP 97.6; O2SAT 96
[2024-04-11] MEDS: ONDANSETRON 4 MG ODT PO ONE (14:46)
[2024-04-11 15:01] LABS: BASOPHILS # (AUTO) 0.1 K/uL (0.00-0.22); BASOPHILS % (AUTO) 0.5 % (0.0-2.0); EOSINOPHILS # (AUTO) 0.2 K/uL (0-0.4); EOSINOPHILS % (AUTO) 1.8 % (0.0-4.0); HEMATOCRIT 39.9 % (36-52); HEMOGLOBIN 13.6 g/dL (12.0-18.0); LYMPHOCYTES # (AUTO) 2.1 K/uL (2.0-11.5); LYMPHOCYTES % (AUTO) 20.2 % (20.5-51.1); MEAN CORPUSCULAR HEMOGLOBIN 30 pg (27-31); MEAN CORPUSCULAR HGB CONC 34 g/dL (33-37); MEAN CORPUSCULAR VOLUME 86.4 fL (80-94); MONOCYTES # (AUTO) 0.9 K/uL (0.8-1.0); MONOCYTES % (AUTO) 8.5 % (1.7-9.3); NEUTROPHILS # (AUTO) 7.1 K/uL (1.8-7.7); PLATELET COUNT (AUTO) 356 K/uL (140-450); RED BLOOD CELL COUNT(AUTO) 4.62 MIL/uL (4.20-6.10); RED CELL DISTRIBUTION WIDTH 13.6 % (11.6-13.7); WHITE BLOOD COUNT (AUTO) 10.2 K/uL (4.8-10.8)
[2024-04-11 15:28] LABS: ANION GAP 16.7 (8-16); CALCIUM 9.2 mg/dL (8.5-10.1); CARBON DIOXIDE 26.2 mmol/L (21-32); CREATININE 1.3 mg/dL (0.6-1.3); POTASSIUM 3.9 mmol/L (3.5-5.1)
[2024-04-11 15:57] LABS: ALANINE AMINOTRANSFERASE 16 U/L (12-78); ALBUMIN 4.1 g/dL (3.4-5.0); ALCOHOL, BLOOD < 3 mg/dL (<10); ALKALINE PHOSPHATASE 81 U/L (50-136); ASPARTATE AMINOTRANSFERASE 21 U/L (15-37); BILIRUBIN,DIRECT 0.1 mg/dL (0.0-0.3); SALICYLATE 2.9 mg/dL (2.8-20.0); TOTAL BILIRUBIN 0.4 mg/dL (0.0-1.0); TOTAL PROTEIN, SERUM 7.5 g/dL (6.4-8.2)
[2024-04-11 15:59] LABS: ACETAMINOPHEN < 0.5 ug/ml (10-30)
[2024-04-11 17:01] LABS: AMPHETAMINE, URINE NEGATIVE ng/ml (NEG <=1000); BARBITURATE, URINE NEGATIVE ng/ml (NEG <=200); BENZODIAZEPINE, URINE NEGATIVE ng/mL (NEG <=200); CANNABINOID, URINE POSITIVE ng/mL (NEG <=50); COCAINE, URINE NEGATIVE ng/mL (NEG <=300); OPIATE, URINE NEGATIVE ng/mL (NEG <=2000); PHENCYCLIDINE SCREEN,URINE NEGATIVE ng/mL (NEG <=25)
[2024-04-11] MEDS: OLANZapine 5 MG ODT PO SCH (21:06)
[2024-04-11 22:21] VITALS: O2SAT 98
[2024-04-12 01:31] VITALS: O2SAT 99
[2024-04-12 03:27] VITALS: O2SAT 99
[2024-04-12 05:51] VITALS: O2SAT 99
[2024-04-12] MEDS: FLUoxetine 20 MG CAP PO SCH (09:54)
[2024-04-12 12:25] VITALS: BP 89/59; PULSE 98; RESP 18; TEMP 98.1; O2SAT 98
== END 2024-04-12 13:14 ==
LOC: MED 14:15
DX: R45.851 Suicidal ideations (principal); Z20.822 Contact with and (suspected) exposure to COVID-19; F32.A Depression, unspecified; K21.9 Gastro-esophageal reflux disease without esophagitis; J45.909 Unspecified asthma, uncomplicated; Z79.899 Other long term (current) drug therapy
CPT/HCPCS: 36415; 80048; 80076; 80305; 85025; 87426; 99285; G0480; G0482; Q0162